=== PATIENT | male | born 1940 | race Caucasian/White ===

== ENCOUNTER 2018-08-03 12:05 | Inpatient (IN) | payer MEDICARE ==
[~2018-08-03] VITALS: Ht 172.7 cm; Wt 68.4 kg
[2018-08-03] MEDS ORDERED: ATOR10TA60 PO (12:51)
[2018-08-03] MEDS ORDERED: GABA-585 PO (12:51)
[2018-08-03] MEDS ORDERED: CALC-474 PO (12:51)
[2018-08-03] MEDS ORDERED: MULT-681 PO (12:51)
[2018-08-03] MEDS ORDERED: ACET325T9 PO (12:51)
[2018-08-03] MEDS ORDERED: CARB1TAB2 PO (12:51)
[2018-08-03] MEDS ORDERED: ASPI-612 PO (12:51)
[2018-08-03] MEDS ORDERED: POLY17PO5 PO (12:51)
[2018-08-03] MEDS ORDERED: PRAM0.255 PO ×2 (12:51)
[2018-08-03] MEDS ORDERED: QUET50TA5 PO (12:51)
[2018-08-03 12:57] LABS: BASO # 0.1 x10^3/uL (0.0-0.2); BASO % 1 % (0-3); EOS # 0.1 x10^3/uL (0.0-0.7); EOS % 1 % (0-3); HEMATOCRIT 44.8 % (39.0-53.0); LYMPH # 0.8 x10^3/uL (1.0-4.8); LYMPH % 10 % (24-48); MEAN CORPUSCULAR HEMOGLOBIN 32 pg (25-35); MEAN CORPUSCULAR HGB CONC 34 g/dL (31-37); MEAN CORPUSCULAR VOLUME 95 fL (79-100); MONO # 0.8 x10^3/uL (0.0-1.1); MONO % 9 % (0-9); NEUT # 6.6 x10^3uL (1.8-7.7); NEUT % 80 % (31-73); PLATELET COUNT 179 x10^3/uL (140-400); RED BLOOD COUNT 4.74 x10^6/uL (4.30-5.70); RED CELL DISTRIBUTION WIDTH 13.9 % (11.5-14.5); WHITE BLOOD COUNT 8.2 x10^3/uL (4.0-11.0)
[2018-08-03 13:11] LABS: ALBUMIN 3.6 g/dL (3.4-5.0); ALBUMIN/GLOBULIN RATIO 1.2 (1.0-1.7); CALCIUM 8.7 mg/dL (8.5-10.1); CREATININE 1.1 mg/dL (0.7-1.3); GFR 64.7; MAGNESIUM 2.2 mg/dL (1.8-2.4); TOTAL BILIRUBIN 0.6 mg/dL (0.2-1.0); TOTAL PROTEIN 6.5 g/dL (6.4-8.2)
--- NOTE | 2018-08-03 13:24 | PHYS DOC ---
Past History Past Medical History: Hypertension, Other Past Surgical History: No Surgical History Alcohol Use: None Drug Use: None Adult General Chief Complaint Chief Complaint: PSYCH EVALUATION HPI HPI Patient is a 78 year [facility] who brought in by his for medical clearance for psychiatric admission. Patient states he had hallucination and had agitation last night. Patient denies suicidal and homicidal ideation. Patient already was accepted to senior behavioral unit and needs medical clearance. Patient denies symptom at this time. Review of Systems Review of Systems Constitutional: Denies fever or chills [] Eyes: Denies change in visual acuity, redness, or eye pain [] HENT: Denies nasal congestion or sore throat [] Respiratory: Denies cough or shortness of breath [] Cardiovascular: No additional information not addressed in HPI [] GI: Denies abdominal pain, nausea, vomiting, bloody stools or diarrhea [] : Denies dysuria or hematuria [] Musculoskeletal: Denies back pain or joint pain [] Integument: Denies rash or skin lesions [] Neurologic: Denies headache, focal weakness or sensory changes [] Endocrine: Denies polyuria or polydipsia [] All other systems were reviewed and found to be within normal limits, except as documented in this note. Allergies Allergies Allergies Coded Allergies Type Severity Reaction Last Updated Verified Penicillins Allergy Intermediate 08/03/18 Yes amoxicillin Allergy Intermediate 08/03/18 Yes clonazepam Allergy Intermediate 08/03/18 Yes Physical Exam Physical Exam Constitutional: Well nourished, no acute distress, non-toxic appearance. [] HENT: Normocephalic, atraumatic Eyes: PERRLA, EOMI, conjunctiva normal, no discharge. [] Neck: Normal range of motion, no tenderness, supple, no stridor. [] Cardiovascular:Heart rate regular rhythm, no murmur [] Lungs & Thorax: Bilateral breath sounds clear to auscultation [] Abdomen: Bowel sounds normal, soft, no tenderness, no masses, no pulsatile masses. [] Skin: Warm, dry, no erythema, no rash. [] Back: No tenderness, no CVA tenderness. [] Extremities: No tenderness, no cyanosis, no clubbing, ROM intact, no edema. [] Neurologic: Alert and oriented X 3, normal motor function, normal sensory function, no focal deficits noted. [] Psychologic: Affect normal, mood normal. [] Current Patient Data Vital Signs Vital Signs Date Time Temp Pulse Resp B/P (MAP) Pulse Ox O2 Delivery O2 Flow Rate FiO2 08/03/18 12:28 97.8 75 18 97 Room Air Lab Results Laboratory Tests Test 08/03/18 12:43 White Blood Count 8.2 x10^3/uL (4.0-11.0) Red Blood Count 4.74 x10^6/uL (4.30-5.70) Hemoglobin 15.0 g/dL (13.0-17.5) Hematocrit 44.8 % (39.0-53.0) Mean Corpuscular Volume 95 fL (79-100) Mean Corpuscular Hemoglobin 32 pg (25-35) Mean Corpuscular Hemoglobin Concent 34 g/dL (31-37) Red Cell Distribution Width 13.9 % (11.5-14.5) Platelet Count 179 x10^3/uL (140-400) Neutrophils (%) (Auto) 80 % (31-73) H Lymphocytes (%) (Auto) 10 % (24-48) L Monocytes (%) (Auto) 9 % (0-9) Eosinophils (%) (Auto) 1 % (0-3) Basophils (%) (Auto) 1 % (0-3) Neutrophils # (Auto) 6.6 x10^3uL (1.8-7.7) Lymphocytes # (Auto) 0.8 x10^3/uL (1.0-4.8) L Monocytes # (Auto) 0.8 x10^3/uL (0.0-1.1) Eosinophils # (Auto) 0.1 x10^3/uL (0.0-0.7) Basophils # (Auto) 0.1 x10^3/uL (0.0-0.2) Sodium Level 143 mmol/L (136-145) Potassium Level 4.0 mmol/L (3.5-5.1) Chloride Level 108 mmol/L (98-107) H Carbon Dioxide Level 28 mmol/L (21-32) Anion Gap 7 (6-14) Blood Urea Nitrogen 22 mg/dL (8-26) Creatinine 1.1 mg/dL (0.7-1.3) Estimated GFR (Cockcroft-Gault) 64.7 BUN/Creatinine Ratio 20 (6-20) Glucose Level 121 mg/dL (70-99) H Calcium Level 8.7 mg/dL (8.5-10.1) Magnesium Level 2.2 mg/dL (1.8-2.4) Total Bilirubin 0.6 mg/dL (0.2-1.0) Aspartate Amino Transferase (AST) 19 U/L (15-37) Alanine Aminotransferase (ALT) 13 U/L (16-63) L Alkaline Phosphatase 80 U/L (46-116) Total Protein 6.5 g/dL (6.4-8.2) Albumin 3.6 g/dL (3.4-5.0) Albumin/Globulin Ratio 1.2 (1.0-1.7) EKG EKG EKG interpreted by me. EKG at 1220 showed normal sinus rhythm at rate of 67, no acute ST and T-wave abnormalities] Radiology/Procedures Radiology/Procedures [] Course & Med Decision Making Course & Med Decision Making Pertinent Labs reviewed. (See chart for details) Evaluation of patient in ER showed 78-year-old male patient brought in to ER for medical clearance for psychiatric admission. Patient had unremarkable physical exam and labs and denied suicidal and homicidal ideation. Patient was medically cleared for psychiatric admission. [] Dragon Disclaimer Dragon Disclaimer This electronic medical record was generated, in whole or in part, using a voice recognition dictation system. Departure Departure: Impression: Primary Impression: Medical clearance for psychiatric admission Disposition: 09 ADMITTED INPATIENT ([id number]) Admitting Physician: Other (Dr. Monsivais) Condition: STABLE YOEL LARA MD Aug 03, 2018 13:24
--- NOTE | 2018-08-03 13:24 | EKG ---
[address] [address] Test Date: 2018-08-03 Test Time: 12:20:05 Pat Name: JOHN ACEVEDO Department: Room: Gender: M Music Director: : 1940 Requested By: YOEL LARA Order Number: [id number] Reading MD: Reddy Javier Measurements Intervals [place] Rate: 67 P: -32 DE: 170 QRS: 41 QRSD: 98 T: 47 QT: 388 QTc: 413 Interpretive Statements SINUS RHYTHM Electronically Signed On 08-06-2018 11:06:38 CDT by Reddy Javier
[2018-08-03 13:34] LABS: BILIRUBIN,URINE NEG (NEG); CLARITY,URINE CLEAR; COLOR,URINE YELLOW; GLUCOSE,URINE NEG (NEG); NITRITE,URINE NEG (NEG); RBC,URINE 0 /HPF (0-2); UROBILINOGEN,URINE 0.2 mg/dL (0.2 mg/dL); WBC,URINE RARE /HPF (0-4)
[2018-08-03 13:35] LABS: BACTERIA,URINE 0 /HPF (0-FEW); SQUAMOUS EPITHELIAL CELL,UR OCC /LPF
[2018-08-03] MEDS ORDERED: GABAPENTIN 100 MG CAPSULE. PO ONE (15:30)
[2018-08-03] MEDS ORDERED: QUEtiapine 50 MG TABLET. PO SCH (15:30)
[2018-08-03] MEDS ORDERED: ACETAMINOPHEN 325 MG TABLET PO PRN (16:30)
[2018-08-03 16:41] VITALS: BP 135/72
[2018-08-03] MEDS: CALCIUM CARB/VIT D3 500/200 TABLET PO SCH (17:00)
[2018-08-03] MEDS ORDERED: CARBIDOPA/LEVODOPA 25/100MG TABLET PO SCH (18:00)
[2018-08-03] MEDS ORDERED: MAGNESIUM HYDROXIDE 2,400 MG/30 ML ORAL.SUSP. PO PRN (18:30)
[2018-08-03] MEDS ORDERED: METHYL SALICYLATE/MENTHOL TOPICAL OINTMENT 29GM TUBE. TP PRN (18:30)
[2018-08-03] MEDS ORDERED: MAG HYDROX/AL HYDROX/SIMETH 30 ML ORAL.SUSP PO PRN (18:30)
[2018-08-03] MEDS: CARBIDOPA/LEVODOPA 25/100MG TABLET PO SCH (19:39)
[2018-08-03] MEDS: QUEtiapine 50 MG TABLET. PO SCH (19:39)
[2018-08-03] MEDS: ASPIRIN ENTERIC COATED 81 MG TABLET.DR. PO SCH (19:39)
[2018-08-03] MEDS: GABAPENTIN 100 MG CAPSULE. PO SCH ×2 (19:39→20:19)
[2018-08-03] MEDS: ATORVASTATIN CALCIUM 10 MG TABLET. PO SCH (19:39)
--- NOTE | 2018-08-03 20:46 | PDOC ---
Exam Note: Alfonso Note: Please also refer to the separate dictated note~for this date of service dictated separately.~Patient seen individually. Discussed the patient with Nursing staff reviewed the chart.~Reviewed interim history and current functioning. Reviewed vital signs,~Labs/ Radiology~and current medications noted below. Continue current treatment with the changes noted in the dictated addendum note Assessment: Vital Signs: Vital Signs Date Time Temp Pulse Resp B/P (MAP) Pulse Ox O2 Delivery O2 Flow Rate FiO2 08/03/18 16:41 98.9 68 18 135/72 (93) 97 Room Air Labs: Laboratory Tests Test 08/03/18 12:43 08/03/18 13:15 White Blood Count 8.2 x10^3/uL (4.0-11.0) Red Blood Count 4.74 x10^6/uL (4.30-5.70) Hemoglobin 15.0 g/dL (13.0-17.5) Hematocrit 44.8 % (39.0-53.0) Mean Corpuscular Volume 95 fL (79-100) Mean Corpuscular Hemoglobin 32 pg (25-35) Mean Corpuscular Hemoglobin Concent 34 g/dL (31-37) Red Cell Distribution Width 13.9 % (11.5-14.5) Platelet Count 179 x10^3/uL (140-400) Neutrophils (%) (Auto) 80 % (31-73) H Lymphocytes (%) (Auto) 10 % (24-48) L Monocytes (%) (Auto) 9 % (0-9) Eosinophils (%) (Auto) 1 % (0-3) Basophils (%) (Auto) 1 % (0-3) Neutrophils # (Auto) 6.6 x10^3uL (1.8-7.7) Lymphocytes # (Auto) 0.8 x10^3/uL (1.0-4.8) L Monocytes # (Auto) 0.8 x10^3/uL (0.0-1.1) Eosinophils # (Auto) 0.1 x10^3/uL (0.0-0.7) Basophils # (Auto) 0.1 x10^3/uL (0.0-0.2) Sodium Level 143 mmol/L (136-145) Potassium Level 4.0 mmol/L (3.5-5.1) Chloride Level 108 mmol/L (98-107) H Carbon Dioxide Level 28 mmol/L (21-32) Anion Gap 7 (6-14) Blood Urea Nitrogen 22 mg/dL (8-26) Creatinine 1.1 mg/dL (0.7-1.3) Estimated GFR (Cockcroft-Gault) 64.7 BUN/Creatinine Ratio 20 (6-20) Glucose Level 121 mg/dL (70-99) H Calcium Level 8.7 mg/dL (8.5-10.1) Magnesium Level 2.2 mg/dL (1.8-2.4) Total Bilirubin 0.6 mg/dL (0.2-1.0) Aspartate Amino Transferase (AST) 19 U/L (15-37) Alanine Aminotransferase (ALT) 13 U/L (16-63) L Alkaline Phosphatase 80 U/L (46-116) Total Protein 6.5 g/dL (6.4-8.2) Albumin 3.6 g/dL (3.4-5.0) Albumin/Globulin Ratio 1.2 (1.0-1.7) Urine Collection Type Unknown Urine Color Yellow Urine Clarity Clear Urine pH 6.0 Urine Specific [place] 1.020 Urine Protein Neg (NEG-TRACE) Urine Glucose (UA) Neg mg/dL (NEG) Urine Ketones (Stick) Trace mg/dL (NEG) Urine Blood Neg (NEG) Urine Nitrite Neg (NEG) Urine Bilirubin Neg (NEG) Urine Urobilinogen Dipstick 0.2 mg/dL (0.2 mg/dL) Urine Leukocyte Esterase Neg (NEG) Urine RBC 0 /HPF (0-2) Urine WBC Rare /HPF (0-4) Urine Squamous Epithelial Cells Occ /LPF Urine Bacteria 0 /HPF (0-FEW) Urine Mucus Mod /LPF Current Medications: Meds: Current Medications Carbidopa/Levodopa (Sinemet 25/100) 2 tab [id number] PO ; Start 08/03/18 at 18:00 ; Stop 08/03/18 at 18:00; Status DC Gabapentin (Neurontin) 100 mg 1X ONCE PO Last administered on 08/03/18at 15:42 ; Start 08/03/18 at 15:30; Stop 08/03/18 at 15:53; Status DC Quetiapine Fumarate (SEROquel) 50 mg PRN TID PO ; Start 08/03/18 at 15:30; Stop 08/03/18 at 16:49; Status DC Acetaminophen (Tylenol) 650 mg PRN Q4HRS PRN PO PAIN / TEMP; Start 08/03/18 at 16:30 Gabapentin (Neurontin) 100 mg TID PO ; Start 08/03/18 at 21:00; Stop 08/03/18 at 21:00; Status DC Aspirin (Aspirin Enteric Coated) 81 mg HS PO Last administered on 08/03/18at 19: 39; Start 08/03/18 at 21:00 Atorvastatin Calcium (Lipitor) 5 mg QHS PO Last administered on 08/03/18at 19:39 ; Start 08/03/18 at 21:00 Calcium/Vitamin D (Oscal D 500mg/ 200uts) 1 tab BIDWMEALS PO Last administered on 08/03/18at 17:00; Start 08/03/18 at 17:00 Multivitamins/ Calcium (Thera-M Plus) 1 tab DAILY PO ; Start 08/04/18 at 09:00 Polyethylene Glycol (miraLAX) 17 gm DAILY PO ; Start 08/04/18 at 09:00 Pramipexole Dihydrochloride (miraPEX) 0.125 mg [id number] PO ; Start 08/04/18 at 09: 00; Stop 08/07/18 at 23:00 Pramipexole Dihydrochloride (miraPEX) 0.25 mg QHS PO Last administered on at 19:40; Start 08/03/18 at 21:00; Stop 08/03/18 at 21:01 Quetiapine Fumarate (SEROquel) 50 mg QHS PO Last administered on 08/03/18at 19: 39; Start 08/03/18 at 21:00 Carbidopa/Levodopa (Sinemet 25/100) 2 tab TID PO Last administered on at 19:39; Start 08/03/18 at 21:00 Multi-Ingredient Ointment (Analgesic [place]) 1 kristina PRN QID PRN TP MUSCLE PAIN; Start 08/03/18 at 18:30 Al Hydroxide/Mg Hydroxide (Mylanta Plus Xs) 15 ml PRN AFTMEALHC PRN PO DYSPEPSIA; Start 08/03/18 at 18:30 Magnesium Hydroxide (Milk Of Magnesia) 2,400 mg PRN QHS PRN PO CONSTIPATION; Start 08/03/18 at 18:30 Active Scripts Active Reported Seroquel (Quetiapine Fumarate) 50 Mg Tablet 50 Mg PO HS Multi-Day Plus Minerals Tablet (Multivitamin-Min/Iron/FA/Vit K) 1 Each Tablet 1 Each PO DAILY Mirapex (Pramipexole Di-Hcl) 0.25 Mg Tablet 0.25 Mg PO HS 1 Days Mirapex (Pramipexole Di-Hcl) 0.25 Mg Tablet 0.125 Mg PO TID 4 Days Miralax (Polyethylene Glycol 3350) 17 Gm Powd.pack 17 Gm PO DAILY Gabapentin 100 Mg Capsule 100 Mg PO TID Sinemet 25-100 Mg Tablet (Carbidopa/Levodopa) 1 Each Tablet 2 Tab PO TID Calcium 500 + Vit D 400 Tablet (Calcium Carbonate/Vitamin D3) 1 Each Tablet 1 Each PO BID Atorvastatin Calcium 10 Mg Tablet 5 Mg PO QHS Aspirin Ec (Aspirin) 81 Mg Tablet.dr 81 Mg PO HS Tylenol (Acetaminophen) 325 Mg Tablet 650 Mg PO PRN Q4HRS PRN I have reviewed the current psychotropics carefully including drug interactions. Risk benefit ratio favors no change other than as noted in my dictated progress note. Diagnosis: Problems: (1) Medical clearance for psychiatric admission (2) Anxiety disorder (3) Impulse control disorder (4) Major depressive disorder, recurrent episode (5) Mild cognitive impairment (6) Parkinson's disease ASIM WISE MD Aug 03, 2018 20:46
[2018-08-03] MEDS ORDERED: PRAMIPEXOLE 0.25 MG TABLET. PO SCH (21:00)
--- NOTE | 2018-08-03 23:36 | HP ---
ADMIT DATE: 08/03/2018 PSYCHIATRIC ADMISSION HISTORY/EVALUATION This note covers elements not covered in my initial note 08/03/2018: The patient was seen individually evening of 08/03/2018 for this evaluation and I previously discussed with nursing staff on 3 or 4 occasions prior to and since the patient's hospitalization. IDENTIFYING DATA: The patient is a 78-year-old male referred to us from [facility] by Dr. Soto, his primary care physician, admitted by Elizabeth Lynch, his , who is his power of employment attorney on account of having vivid hallucinations, delusions, paranoia, being resistive to cares, worsening anxiety. Reportedly, the patient threw his urinal at the staff. He does have a history of Parkinson's with short-term memory deficits, worsening in the evening, questionable early dementia secondary to Parkinson's/Lewy body with behavioral disturbance. He has failed outpatient psychiatric interventions resulting in this referral. CHIEF COMPLAINT: "I came here a short while back today. I live at [facility]. I have some hallucinations, but they are mainly in the evening." HISTORY OF PRESENT ILLNESS: The patient has a history of Parkinson's disease, some short term memory deficits, worsening symptoms of depression, delusion, hallucinations, paranoia, worsening in the evening with increased confusion. He has had some sleep and appetite changes. Hallucinations have been visual and auditory. He has been suspicious of people paranoid, resistive to medications and cares at times, anxious. He has failed outpatient psychiatric interventions. PAST PSYCHIATRIC HISTORY: As above. MEDICAL HISTORY: Parkinson's disease, hypertension, history of falls, hyperlipidemia, low back pain, neuropathy. ACCU-CHEKS: None. DIET: Regular. AMBULATES: With walker. CODE STATUS: DNR. ALLERGIES: AMOXIL, PENICILLIN, KLONOPIN. CURRENT PSYCHOTROPICS: Seroquel 50 mg at bedtime. FAMILY HISTORY: Noncontributory. SOCIAL HISTORY: No history of alcohol, drug abuse, physical, sexual or elder abuse history is noted. Not known to be a perpetrator. He has 1 son who he says is a plant protection superintendent for [employer] in [place]. 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 REACTION TO HOSPITALIZATION: The patient accepting of it. ASSETS: Supportive family, cognitively reasonably intact other than confusion in the evening. MENTAL STATUS EXAMINATION: The patient was seen individually evening of 08/03/2018. He is oriented to himself, date, and situation. He knew it was 07/2018. When asked about if he knew the name of the president, he responded "Na[place]." He was unable to remember the name, but was able to describe the hair of the president. Speech coherent. Thought processes goal directed. Intellect average. Insight good. Judgment intact. He is somewhat paranoid. Mood is depressed, anxious. Affect, mood congruent. Attention span short. Language function intact. 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 Rest unchanged from above. PLAN: Admit to geropsychiatry unit at [facility]. I will see the patient daily individually from a psychiatric standpoint, medical followup with Dr. Germain/Dr. Lee. Continue the patient on his current psychotropics, observe baseline, consider adding an SSRI agent, perhaps Exelon patch and Namenda, given questionable Lewy body dementia. Make further adjustments as clinically indicated. ESTIMATED LENGTH OF STAY: 10-12 days. DISPOSITION PLAN: Back to [facility]. MAN Taras WISE MD DR: LISA/ferny JOB#: [id number] / [id number]
[2018-08-04 03:07] LABS: HEMOGLOBIN A1C 5.1 % (4.8-5.6)
[2018-08-04 05:08] LABS: THYROXINE 7.5 ug/dL (4.5-12.0)
[2018-08-04 06:01] VITALS: BP 137/76
[2018-08-04] MEDS: CALCIUM CARB/VIT D3 500/200 TABLET PO SCH ×2 (07:57→17:49)
[2018-08-04] MEDS: POLYETHYLENE GLYCOL 3350 17 GM PACKET. PO SCH (07:57)
[2018-08-04] MEDS: MULTIVITAMIN with MINERAL TABLET. PO SCH (07:58)
[2018-08-04] MEDS: CARBIDOPA/LEVODOPA 25/100MG TABLET PO SCH ×3 (07:58→20:30)
[2018-08-04] MEDS: PRAMIPEXOLE 0.25 MG TABLET. PO SCH ×3 (07:58→20:30)
--- NOTE | 2018-08-04 11:16 | PDOC2 ---
CONSULT Date of Admission DATE: 08/04/18 TIME: 11:16 Problem List Problems Medical Problems: (1) Medical clearance for psychiatric admission Status: Acute Current Medications Current Medications Carbidopa/Levodopa (Sinemet 25/100) 2 tab [id number] PO ; Start 08/03/18 at 18:00 ; Stop 08/03/18 at 18:00; Status DC Gabapentin (Neurontin) 100 mg 1X ONCE PO Last administered on 08/03/18at 15:42 ; Start 08/03/18 at 15:30; Stop 08/03/18 at 15:53; Status DC Quetiapine Fumarate (SEROquel) 50 mg PRN TID PO ; Start 08/03/18 at 15:30; Stop 08/03/18 at 16:49; Status DC Acetaminophen (Tylenol) 650 mg PRN Q4HRS PRN PO PAIN / TEMP; Start 08/03/18 at 16:30 Gabapentin (Neurontin) 100 mg TID PO ; Start 08/03/18 at 21:00; Stop 08/03/18 at 21:00; Status DC Aspirin (Aspirin Enteric Coated) 81 mg HS PO Last administered on 08/03/18at 19: 39; Start 08/03/18 at 21:00 Atorvastatin Calcium (Lipitor) 5 mg QHS PO Last administered on 08/03/18at 19:39 ; Start 08/03/18 at 21:00 Calcium/Vitamin D (Oscal D 500mg/ 200uts) 1 tab BIDWMEALS PO Last administered on 08/04/18at 07:57; Start 08/03/18 at 17:00 Multivitamins/ Calcium (Thera-M Plus) 1 tab DAILY PO Last administered on at 07:58; Start 08/04/18 at 09:00 Polyethylene Glycol (miraLAX) 17 gm DAILY PO Last administered on 08/04/18at 07: 57; Start 08/04/18 at 09:00 Pramipexole Dihydrochloride (miraPEX) 0.125 mg [id number] PO Last administered on at 07:58; Start 08/04/18 at 09:00; Stop 08/07/18 at 23:00 Pramipexole Dihydrochloride (miraPEX) 0.25 mg QHS PO Last administered on at 19:40; Start 08/03/18 at 21:00; Stop 08/03/18 at 21:01; Status DC Quetiapine Fumarate (SEROquel) 50 mg QHS PO Last administered on 08/03/18at 19: 39; Start 08/03/18 at 21:00 Carbidopa/Levodopa (Sinemet 25/100) 2 tab TID PO Last administered on at 07:58; Start 08/03/18 at 21:00 Multi-Ingredient Ointment (Analgesic [place]) 1 kristina PRN QID PRN TP MUSCLE PAIN; Start 08/03/18 at 18:30 Al Hydroxide/Mg Hydroxide (Mylanta Plus Xs) 15 ml PRN AFTMEALHC PRN PO DYSPEPSIA; Start 08/03/18 at 18:30 Magnesium Hydroxide (Milk Of Magnesia) 2,400 mg PRN QHS PRN PO CONSTIPATION; Start 08/03/18 at 18:30 Active Scripts Active Reported Seroquel (Quetiapine Fumarate) 50 Mg Tablet 50 Mg PO HS Multi-Day Plus Minerals Tablet (Multivitamin-Min/Iron/FA/Vit K) 1 Each Tablet 1 Each PO DAILY Mirapex (Pramipexole Di-Hcl) 0.25 Mg Tablet 0.25 Mg PO HS 1 Days Mirapex (Pramipexole Di-Hcl) 0.25 Mg Tablet 0.125 Mg PO TID 4 Days Miralax (Polyethylene Glycol 3350) 17 Gm Powd.pack 17 Gm PO DAILY Gabapentin 100 Mg Capsule 100 Mg PO TID Sinemet 25-100 Mg Tablet (Carbidopa/Levodopa) 1 Each Tablet 2 Tab PO TID Calcium 500 + Vit D 400 Tablet (Calcium Carbonate/Vitamin D3) 1 Each Tablet 1 Each PO BID Atorvastatin Calcium 10 Mg Tablet 5 Mg PO QHS Aspirin Ec (Aspirin) 81 Mg Tablet.dr 81 Mg PO HS Tylenol (Acetaminophen) 325 Mg Tablet 650 Mg PO PRN Q4HRS PRN Allergies: Coded Allergies: Penicillins (Verified Allergy, Intermediate, 08/03/18) amoxicillin (Verified Allergy, Intermediate, 08/03/18) clonazepam (Verified Allergy, Intermediate, 08/03/18) VITALS Vital Signs Date Time Temp Pulse Resp B/P (MAP) Pulse Ox O2 Delivery O2 Flow Rate FiO2 08/04/18 06:01 97.9 66 16 137/76 (96) 95 08/03/18 16:41 Room Air Labs Laboratory Tests Test 08/03/18 12:43 08/03/18 13:15 White Blood Count 8.2 x10^3/uL (4.0-11.0) Red Blood Count 4.74 x10^6/uL (4.30-5.70) Hemoglobin 15.0 g/dL (13.0-17.5) Hematocrit 44.8 % (39.0-53.0) Mean Corpuscular Volume 95 fL (79-100) Mean Corpuscular Hemoglobin 32 pg (25-35) Mean Corpuscular Hemoglobin Concent 34 g/dL (31-37) Red Cell Distribution Width 13.9 % (11.5-14.5) Platelet Count 179 x10^3/uL (140-400) Neutrophils (%) (Auto) 80 % (31-73) Lymphocytes (%) (Auto) 10 % (24-48) Monocytes (%) (Auto) 9 % (0-9) Eosinophils (%) (Auto) 1 % (0-3) Basophils (%) (Auto) 1 % (0-3) Neutrophils # (Auto) 6.6 x10^3uL (1.8-7.7) Lymphocytes # (Auto) 0.8 x10^3/uL (1.0-4.8) Monocytes # (Auto) 0.8 x10^3/uL (0.0-1.1) Eosinophils # (Auto) 0.1 x10^3/uL (0.0-0.7) Basophils # (Auto) 0.1 x10^3/uL (0.0-0.2) Sodium Level 143 mmol/L (136-145) Potassium Level 4.0 mmol/L (3.5-5.1) Chloride Level 108 mmol/L (98-107) Carbon Dioxide Level 28 mmol/L (21-32) Anion Gap 7 (6-14) Blood Urea Nitrogen 22 mg/dL (8-26) Creatinine 1.1 mg/dL (0.7-1.3) Estimated GFR (Cockcroft-Gault) 64.7 BUN/Creatinine Ratio 20 (6-20) Glucose Level 121 mg/dL (70-99) Hemoglobin A1c 5.1 % (4.8-5.6) Calcium Level 8.7 mg/dL (8.5-10.1) Magnesium Level 2.2 mg/dL (1.8-2.4) Total Bilirubin 0.6 mg/dL (0.2-1.0) Aspartate Amino Transf (AST/SGOT) 19 U/L (15-37) Alanine Aminotransferase (ALT/SGPT) 13 U/L (16-63) Alkaline Phosphatase 80 U/L (46-116) Total Protein 6.5 g/dL (6.4-8.2) Albumin 3.6 g/dL (3.4-5.0) Albumin/Globulin Ratio 1.2 (1.0-1.7) Thyroxine (T4) 7.5 ug/dL (4.5-12.0) Total Triiodothyronine 120 ng/dL (71-180) Urine Collection Type Unknown Urine Color Yellow Urine Clarity Clear Urine pH 6.0 Urine Specific [place] 1.020 Urine Protein Neg (NEG-TRACE) Urine Glucose (UA) Neg mg/dL (NEG) Urine Ketones (Stick) Trace mg/dL (NEG) Urine Blood Neg (NEG) Urine Nitrite Neg (NEG) Urine Bilirubin Neg (NEG) Urine Urobilinogen Dipstick 0.2 mg/dL (0.2 mg/dL) Urine Leukocyte Esterase Neg (NEG) Urine RBC 0 /HPF (0-2) Urine WBC Rare /HPF (0-4) Urine Squamous Epithelial Cells Occ /LPF Urine Bacteria 0 /HPF (0-FEW) Urine Mucus Mod /LPF GADIEL LACEY DO Aug 04, 2018 11:16
[2018-08-04 11:51] LABS: THYROID STIM HORMONE (TSH) 2.239 uIU/mL (0.358-3.740)
[2018-08-04 15:41] VITALS: BP 130/70
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
[2018-08-04] MEDS: ASPIRIN ENTERIC COATED 81 MG TABLET.DR. PO SCH (20:29)
[2018-08-04] MEDS: QUEtiapine 50 MG TABLET. PO SCH (20:30)
[2018-08-04] MEDS: ATORVASTATIN CALCIUM 10 MG TABLET. PO SCH (20:30)
--- NOTE | 2018-08-04 22:47 | PDOC ---
Exam Note: Alfonso Note: Please also refer to the separate dictated note~for this date of service dictated separately.~Patient seen individually. Discussed the patient with Nursing staff reviewed the chart.~Reviewed interim history and current functioning. Reviewed vital signs,~Labs/ Radiology~and current medications noted below. Continue current treatment with the changes noted in the dictated addendum note Assessment: Vital Signs: Vital Signs Date Time Temp Pulse Resp B/P (MAP) Pulse Ox O2 Delivery O2 Flow Rate FiO2 08/04/18 15:41 97.3 76 20 130/70 (90) 96 08/03/18 16:41 Room Air I&O Intake and Output 08/04/18 07:00 Intake Total 240 ml Balance 240 ml Intake Oral 240 ml # Voids 1 Current Medications: Meds: Current Medications Carbidopa/Levodopa (Sinemet 25/100) 2 tab [id number] PO ; Start 08/03/18 at 18:00 ; Stop 08/03/18 at 18:00; Status DC Gabapentin (Neurontin) 100 mg 1X ONCE PO Last administered on 08/03/18at 15:42 ; Start 08/03/18 at 15:30; Stop 08/03/18 at 15:53; Status DC Quetiapine Fumarate (SEROquel) 50 mg PRN TID PO ; Start 08/03/18 at 15:30; Stop 08/03/18 at 16:49; Status DC Acetaminophen (Tylenol) 650 mg PRN Q4HRS PRN PO PAIN / TEMP; Start 08/03/18 at 16:30 Gabapentin (Neurontin) 100 mg TID PO ; Start 08/03/18 at 21:00; Stop 08/03/18 at 21:00; Status DC Aspirin (Aspirin Enteric Coated) 81 mg HS PO Last administered on 08/04/18at 20: 29; Start 08/03/18 at 21:00 Atorvastatin Calcium (Lipitor) 5 mg QHS PO Last administered on 08/04/18at 20:30 ; Start 08/03/18 at 21:00 Calcium/Vitamin D (Oscal D 500mg/ 200uts) 1 tab BIDWMEALS PO Last administered on 08/04/18at 17:49; Start 08/03/18 at 17:00 Multivitamins/ Calcium (Thera-M Plus) 1 tab DAILY PO Last administered on 07:58; Start 08/04/18 at 09:00 Polyethylene Glycol (miraLAX) 17 gm DAILY PO Last administered on 08/04/18 07: 57; Start 08/04/18 at 09:00 Pramipexole Dihydrochloride (miraPEX) 0.125 mg [id number] PO Last administered on 20:30; Start 08/04/18 at 09:00; Stop 08/07/18 at 23:00 Pramipexole Dihydrochloride (miraPEX) 0.25 mg QHS PO Last administered on at 19:40; Start 08/03/18 at 21:00; Stop 08/03/18 at 21:01; Status DC Quetiapine Fumarate (SEROquel) 50 mg QHS PO Last administered on 08/04/18at 20: 30; Start 08/03/18 at 21:00 Carbidopa/Levodopa (Sinemet 25/100) 2 tab TID PO Last administered on at 20:30; Start 08/03/18 at 21:00 Multi-Ingredient Ointment (Analgesic [place]) 1 kristina PRN QID PRN TP MUSCLE PAIN; Start 08/03/18 at 18:30 Al Hydroxide/Mg Hydroxide (Mylanta Plus Xs) 15 ml PRN AFTMEALHC PRN PO DYSPEPSIA; Start 08/03/18 at 18:30 Magnesium Hydroxide (Milk Of Magnesia) 2,400 mg PRN QHS PRN PO CONSTIPATION; Start 08/03/18 at 18:30 Active Scripts Active Reported Seroquel (Quetiapine Fumarate) 50 Mg Tablet 50 Mg PO HS Multi-Day Plus Minerals Tablet (Multivitamin-Min/Iron/FA/Vit K) 1 Each Tablet 1 Each PO DAILY Mirapex (Pramipexole Di-Hcl) 0.25 Mg Tablet 0.25 Mg PO HS 1 Days Mirapex (Pramipexole Di-Hcl) 0.25 Mg Tablet 0.125 Mg PO TID 4 Days Miralax (Polyethylene Glycol 3350) 17 Gm Powd.pack 17 Gm PO DAILY Gabapentin 100 Mg Capsule 100 Mg PO TID Sinemet 25-100 Mg Tablet (Carbidopa/Levodopa) 1 Each Tablet 2 Tab PO TID Calcium 500 + Vit D 400 Tablet (Calcium Carbonate/Vitamin D3) 1 Each Tablet 1 Each PO BID Atorvastatin Calcium 10 Mg Tablet 5 Mg PO QHS Aspirin Ec (Aspirin) 81 Mg Tablet. 81 Mg PO HS Tylenol (Acetaminophen) 325 Mg Tablet 650 Mg PO PRN Q4HRS PRN I have reviewed the current psychotropics carefully including drug interactions. Risk benefit ratio favors no change other than as noted in my dictated progress note. Diagnosis: Problems: (1) Medical clearance for psychiatric admission (2) Anxiety disorder (3) Impulse control disorder (4) Major depressive disorder, recurrent episode (5) Mild cognitive impairment (6) Parkinson's disease ASIM WISE MD Aug 04, 2018 22:47
[2018-08-05 05:46] VITALS: BP 121/83
[2018-08-05] MEDS: POLYETHYLENE GLYCOL 3350 17 GM PACKET. PO SCH (07:19)
[2018-08-05] MEDS: PRAMIPEXOLE 0.25 MG TABLET. PO SCH ×3 (07:19→21:37)
[2018-08-05] MEDS: CALCIUM CARB/VIT D3 500/200 TABLET PO SCH ×2 (07:19→18:16)
[2018-08-05] MEDS: MULTIVITAMIN with MINERAL TABLET. PO SCH (07:19)
[2018-08-05] MEDS: CARBIDOPA/LEVODOPA 25/100MG TABLET PO SCH ×3 (07:19→21:38)
[2018-08-05] MEDS: RIVASTIGMINE 4.6MG PATCH. TD SCH (13:26)
[2018-08-05] MEDS: MEMANTINE 5 MG TABLET. PO SCH (13:26)
[2018-08-05 16:35] VITALS: BP 151/90
[2018-08-05 16:54] LABS: BASO % 1 % (0-3); EOS # 0.2 x10^3/uL (0.0-0.7); EOS % 3 % (0-3); HEMATOCRIT 45.8 % (39.0-53.0); HEMOGLOBIN 15.5 g/dL (13.0-17.5); LYMPH # 0.9 x10^3/uL (1.0-4.8); LYMPH % 17 % (24-48); MEAN CORPUSCULAR HEMOGLOBIN 32 pg (25-35); MEAN CORPUSCULAR HGB CONC 34 g/dL (31-37); MEAN CORPUSCULAR VOLUME 96 fL (79-100); MONO # 0.7 x10^3/uL (0.0-1.1); MONO % 13 % (0-9); NEUT # 3.6 x10^3uL (1.8-7.7); NEUT % 66 % (31-73); PLATELET COUNT 180 x10^3/uL (140-400); RED BLOOD COUNT 4.79 x10^6/uL (4.30-5.70); RED CELL DISTRIBUTION WIDTH 14.1 % (11.5-14.5); WHITE BLOOD COUNT 5.6 x10^3/uL (4.0-11.0)
[2018-08-05 17:01] LABS: ALBUMIN 3.5 g/dL (3.4-5.0); ALBUMIN/GLOBULIN RATIO 1.2 (1.0-1.7); CALCIUM 8.4 mg/dL (8.5-10.1); CREATININE 0.9 mg/dL (0.7-1.3); GFR 81.6; TOTAL BILIRUBIN 0.4 mg/dL (0.2-1.0); TOTAL PROTEIN 6.4 g/dL (6.4-8.2)
--- NOTE | 2018-08-05 20:57 | PDOC ---
Exam Note: Alfonso Note: Please also refer to the separate dictated note~for this date of service dictated separately.~Patient seen individually. Discussed the patient with Nursing staff reviewed the chart.~Reviewed interim history and current functioning. Reviewed vital signs,~Labs/ Radiology~and current medications noted below. Continue current treatment with the changes noted in the dictated addendum note Assessment: Vital Signs: Vital Signs Date Time Temp Pulse Resp B/P (MAP) Pulse Ox O2 Delivery O2 Flow Rate FiO2 08/05/18 16:35 98.6 83 18 151/90 (110) 94 08/03/18 16:41 Room Air I&O Intake and Output 08/05/18 07:00 Intake Total 1440 ml Balance 1440 ml Intake Oral 1440 ml # Voids 1 Labs: Laboratory Tests Test 08/05/18 16:16 08/05/18 16:30 Glucose (Fingerstick) 107 mg/dL (70-99) H White Blood Count 5.6 x10^3/uL (4.0-11.0) Red Blood Count 4.79 x10^6/uL (4.30-5.70) Hemoglobin 15.5 g/dL (13.0-17.5) Hematocrit 45.8 % (39.0-53.0) Mean Corpuscular Volume 96 fL (79-100) Mean Corpuscular Hemoglobin 32 pg (25-35) Mean Corpuscular Hemoglobin Concent 34 g/dL (31-37) Red Cell Distribution Width 14.1 % (11.5-14.5) Platelet Count 180 x10^3/uL (140-400) Neutrophils (%) (Auto) 66 % (31-73) Lymphocytes (%) (Auto) 17 % (24-48) L Monocytes (%) (Auto) 13 % (0-9) H Eosinophils (%) (Auto) 3 % (0-3) Basophils (%) (Auto) 1 % (0-3) Neutrophils # (Auto) 3.6 x10^3uL (1.8-7.7) Lymphocytes # (Auto) 0.9 x10^3/uL (1.0-4.8) L Monocytes # (Auto) 0.7 x10^3/uL (0.0-1.1) Eosinophils # (Auto) 0.2 x10^3/uL (0.0-0.7) Basophils # (Auto) 0.0 x10^3/uL (0.0-0.2) Sodium Level 142 mmol/L (136-145) Potassium Level 4.0 mmol/L (3.5-5.1) Chloride Level 107 mmol/L (98-107) Carbon Dioxide Level 31 mmol/L (21-32) Anion Gap 4 (6-14) L Blood Urea Nitrogen 22 mg/dL (8-26) Creatinine 0.9 mg/dL (0.7-1.3) Estimated GFR (Cockcroft-Gault) 81.6 BUN/Creatinine Ratio 24 (6-20) H Glucose Level 105 mg/dL (70-99) H Lactic Acid Level 1.6 mmol/L (0.4-2.0) Calcium Level 8.4 mg/dL (8.5-10.1) L Total Bilirubin 0.4 mg/dL (0.2-1.0) Aspartate Amino Transferase (AST) 17 U/L (15-37) Alanine Aminotransferase (ALT) 16 U/L (16-63) Alkaline Phosphatase 95 U/L (46-116) Troponin I Quantitative < 0.017 ng/mL (0-0.055) Total Protein 6.4 g/dL (6.4-8.2) Albumin 3.5 g/dL (3.4-5.0) Albumin/Globulin Ratio 1.2 (1.0-1.7) Current Medications: Meds: Current Medications Carbidopa/Levodopa (Sinemet 25/100) 2 tab [id number] PO ; Start 08/03/18 at 18:00 ; Stop 08/03/18 at 18:00; Status DC Gabapentin (Neurontin) 100 mg 1X ONCE PO Last administered on 08/03/18at 15:42 ; Start 08/03/18 at 15:30; Stop 08/03/18 at 15:53; Status DC Quetiapine Fumarate (SEROquel) 50 mg PRN TID PO ; Start 08/03/18 at 15:30; Stop 08/03/18 at 16:49; Status DC Acetaminophen (Tylenol) 650 mg PRN Q4HRS PRN PO PAIN / TEMP; Start 08/03/18 at 16:30 Gabapentin (Neurontin) 100 mg TID PO ; Start 08/03/18 at 21:00; Stop 08/03/18 at 21:00; Status DC Aspirin (Aspirin Enteric Coated) 81 mg HS PO Last administered on 08/04/18 20: 29; Start 08/03/18 at 21:00 Atorvastatin Calcium (Lipitor) 5 mg QHS PO Last administered on 08/04/18 20:30 ; Start 08/03/18 at 21:00 Calcium/Vitamin D (Oscal D 500mg/ 200uts) 1 tab BIDWMEALS PO Last administered on 08/05/18 18:16; Start 08/03/18 at 17:00 Multivitamins/ Calcium (Thera-M Plus) 1 tab DAILY PO Last administered on 07:19; Start 08/04/18 at 09:00 Polyethylene Glycol (miraLAX) 17 gm DAILY PO Last administered on 08/05/18 07: 19; Start 08/04/18 at 09:00 Pramipexole Dihydrochloride (miraPEX) 0.125 mg [id number] PO Last administered on 13:26; Start 08/04/18 at 09:00; Stop 08/07/18 at 23:00 Pramipexole Dihydrochloride (miraPEX) 0.25 mg QHS PO Last administered on at 19:40; Start 08/03/18 at 21:00; Stop 08/03/18 at 21:01; Status DC Quetiapine Fumarate (SEROquel) 50 mg QHS PO Last administered on 08/04/18at 20: 30; Start 08/03/18 at 21:00 Carbidopa/Levodopa (Sinemet 25/100) 2 tab TID PO Last administered on 13:26; Start 08/03/18 at 21:00 Multi-Ingredient Ointment (Analgesic [place]) 1 kristina PRN QID PRN TP MUSCLE PAIN; Start 08/03/18 at 18:30 Al Hydroxide/Mg Hydroxide (Mylanta Plus Xs) 15 ml PRN AFTMEALHC PRN PO DYSPEPSIA; Start 08/03/18 at 18:30 Magnesium Hydroxide (Milk Of Magnesia) 2,400 mg PRN QHS PRN PO CONSTIPATION; Start 08/03/18 at 18:30 Memantine (Namenda) 5 mg DAILY PO Last administered on 08/05/18at 13:26; Start 08/05/18 at 10:00 Rivastigmine (Exelon) 1 patch DAILY TD Last administered on 08/05/18at 13:26; Start 08/05/18 at 10:00 Mirtazapine (Remeron) 7.5 mg QHS PO ; Start 08/05/18 at 21:00 Olanzapine (ZyPREXA ZYDIS) 1.25 mg PRN Q2HR PRN PO ANXIETY / AGITATION; Start 08/05/18 at 09:30 Active Scripts Active Reported Seroquel (Quetiapine Fumarate) 50 Mg Tablet 50 Mg PO HS Multi-Day Plus Minerals Tablet (Multivitamin-Min/Iron/FA/Vit K) 1 Each Tablet 1 Each PO DAILY Mirapex (Pramipexole Di-Hcl) 0.25 Mg Tablet 0.25 Mg PO HS 1 Days Mirapex (Pramipexole Di-Hcl) 0.25 Mg Tablet 0.125 Mg PO TID 4 Days Miralax (Polyethylene Glycol 3350) 17 Gm Powd.pack 17 Gm PO DAILY Gabapentin 100 Mg Capsule 100 Mg PO TID Sinemet 25-100 Mg Tablet (Carbidopa/Levodopa) 1 Each Tablet 2 Tab PO TID Calcium 500 + Vit D 400 Tablet (Calcium Carbonate/Vitamin D3) 1 Each Tablet 1 Each PO BID Atorvastatin Calcium 10 Mg Tablet 5 Mg PO QHS Aspirin Ec (Aspirin) 81 Mg Tablet. 81 Mg PO HS Tylenol (Acetaminophen) 325 Mg Tablet 650 Mg PO PRN Q4HRS PRN I have reviewed the current psychotropics carefully including drug interactions. Risk benefit ratio favors no change other than as noted in my dictated progress note. Diagnosis: Problems: (1) Medical clearance for psychiatric admission (2) Anxiety disorder (3) Impulse control disorder (4) Major depressive disorder, recurrent episode (5) Mild cognitive impairment (6) Parkinson's disease ASIM WISE MD Aug 05, 2018 20:57
[2018-08-05] MEDS: ATORVASTATIN CALCIUM 10 MG TABLET. PO SCH (21:37)
[2018-08-05] MEDS: QUEtiapine 50 MG TABLET. PO SCH (21:38)
[2018-08-05] MEDS: ASPIRIN ENTERIC COATED 81 MG TABLET.DR. PO SCH (21:38)
[2018-08-05] MEDS: MIRTAZAPINE 7.5 MG TABLET. PO SCH (21:39)
[2018-08-06 06:32] VITALS: BP 101/55
--- NOTE | 2018-08-06 08:50 | RAD ---
EXAM: Chest, single view. HISTORY: Rapid response. Shortness of breath. COMPARISON: None. FINDINGS: A frontal view of the chest is obtained. There is no infiltrate, pleural effusion or pneumothorax. The heart is normal in size. IMPRESSION: No acute pulmonary finding. Electronically signed by: Brooklyn Castaneda MD (08/06/2018 8:46 AM) [place] [id number]
[2018-08-06] MEDS: POLYETHYLENE GLYCOL 3350 17 GM PACKET. PO SCH (09:15)
[2018-08-06] MEDS: CALCIUM CARB/VIT D3 500/200 TABLET PO SCH ×2 (09:15→17:37)
[2018-08-06] MEDS: PRAMIPEXOLE 0.25 MG TABLET. PO SCH ×3 (09:16→21:06)
[2018-08-06] MEDS: MEMANTINE 5 MG TABLET. PO SCH (09:16)
[2018-08-06] MEDS: RIVASTIGMINE 4.6MG PATCH. TD SCH (09:17)
[2018-08-06] MEDS: CARBIDOPA/LEVODOPA 25/100MG TABLET PO SCH ×3 (09:17→21:07)
[2018-08-06] MEDS: MULTIVITAMIN with MINERAL TABLET. PO SCH (09:17)
--- NOTE | 2018-08-06 11:06 | EKG ---
[address] [address] Test Date: 2018-08-05 Test Time: 16:26:49 Pat Name: JOHN ACEVEDO Department: Room: [address] [place] [address] Gender: M [employer]: : [id number] Requested By: GADIEL LACEY Order Number: [id number] Reading MD: Reddy Javier Measurements Intervals [place] Rate: 68 P: 36 SC: 168 QRS: 52 QRSD: 102 T: 54 QT: 394 QTc: 424 Interpretive Statements SINUS RHYTHM Electronically Signed On 08-06-2018 11:28:05 CDT by Reddy Javier
[2018-08-06 15:50] VITALS: BP 125/72
--- NOTE | 2018-08-06 20:51 | PDOC ---
Exam Note: Alfonso Note: Please also refer to the separate dictated note~for this date of service dictated separately.~Patient seen individually. Discussed the patient with Nursing staff reviewed the chart.~Reviewed interim history and current functioning. Reviewed vital signs,~Labs/ Radiology~and current medications noted below. Continue current treatment with the changes noted in the dictated addendum note Assessment: Vital Signs: Vital Signs Date Time Temp Pulse Resp B/P (MAP) Pulse Ox O2 Delivery O2 Flow Rate FiO2 08/06/18 15:50 97.9 61 18 125/72 (89) 95 08/06/18 06:32 Room Air I&O Intake and Output 08/06/18 07:00 Intake Total 845 ml Balance 845 ml Intake Oral 845 ml # Voids 1 # Bowel Movements 1 Current Medications: Meds: Current Medications Carbidopa/Levodopa (Sinemet 25/100) 2 tab [id number] PO ; Start 08/03/18 at 18:00 ; Stop 08/03/18 at 18:00; Status DC Gabapentin (Neurontin) 100 mg 1X ONCE PO Last administered on 08/03/18at 15:42 ; Start 08/03/18 at 15:30; Stop 08/03/18 at 15:53; Status DC Quetiapine Fumarate (SEROquel) 50 mg PRN TID PO ; Start 08/03/18 at 15:30; Stop 08/03/18 at 16:49; Status DC Acetaminophen (Tylenol) 650 mg PRN Q4HRS PRN PO PAIN / TEMP; Start 08/03/18 at 16:30 Gabapentin (Neurontin) 100 mg TID PO ; Start 08/03/18 at 21:00; Stop 08/03/18 at 21:00; Status DC Aspirin (Aspirin Enteric Coated) 81 mg HS PO Last administered on 08/05/18at 21: 38; Start 08/03/18 at 21:00 Atorvastatin Calcium (Lipitor) 5 mg QHS PO Last administered on 08/05/18at 21:37 ; Start 08/03/18 at 21:00 Calcium/Vitamin D (Oscal D 500mg/ 200uts) 1 tab BIDWMEALS PO Last administered on 08/06/18at 17:37; Start 08/03/18 at 17:00 Multivitamins/ Calcium (Thera-M Plus) 1 tab DAILY PO Last administered on at 09:17; Start 08/04/18 at 09:00 Polyethylene Glycol (miraLAX) 17 gm DAILY PO Last administered on 08/06/18at 09: 15; Start 08/04/18 at 09:00 Pramipexole Dihydrochloride (miraPEX) 0.125 mg [id number] PO Last administered on at 14:03; Start 08/04/18 at 09:00; Stop 08/07/18 at 23:00 Pramipexole Dihydrochloride (miraPEX) 0.25 mg QHS PO Last administered on at 19:40; Start 08/03/18 at 21:00; Stop 08/03/18 at 21:01; Status DC Quetiapine Fumarate (SEROquel) 50 mg QHS PO Last administered on 08/05/18at 21: 38; Start 08/03/18 at 21:00 Carbidopa/Levodopa (Sinemet 25/100) 2 tab TID PO Last administered on at 14:03; Start 08/03/18 at 21:00 Multi-Ingredient Ointment (Analgesic [place]) 1 kristina PRN QID PRN TP MUSCLE PAIN; Start 08/03/18 at 18:30 Al Hydroxide/Mg Hydroxide (Mylanta Plus Xs) 15 ml PRN AFTMEALHC PRN PO DYSPEPSIA; Start 08/03/18 at 18:30 Magnesium Hydroxide (Milk Of Magnesia) 2,400 mg PRN QHS PRN PO CONSTIPATION; Start 08/03/18 at 18:30 Memantine (Namenda) 5 mg DAILY PO Last administered on 08/06/18at 09:16; Start 08/05/18 at 10:00 Rivastigmine (Exelon) 1 patch DAILY TD Last administered on 08/06/18at 09:17; Start 08/05/18 at 10:00 Mirtazapine (Remeron) 7.5 mg QHS PO Last administered on 08/05/18at 21:39; Start 08/05/18 at 21:00 Olanzapine (ZyPREXA ZYDIS) 1.25 mg PRN Q2HR PRN PO ANXIETY / AGITATION; Start 08/05/18 at 09:30 Active Scripts Active Reported Seroquel (Quetiapine Fumarate) 50 Mg Tablet 50 Mg PO HS Multi-Day Plus Minerals Tablet (Multivitamin-Min/Iron/FA/Vit K) 1 Each Tablet 1 Each PO DAILY Mirapex (Pramipexole Di-Hcl) 0.25 Mg Tablet 0.25 Mg PO HS 1 Days Mirapex (Pramipexole Di-Hcl) 0.25 Mg Tablet 0.125 Mg PO TID 4 Days Miralax (Polyethylene Glycol 3350) 17 Gm Powd.pack 17 Gm PO DAILY Gabapentin 100 Mg Capsule 100 Mg PO TID Sinemet 25-100 Mg Tablet (Carbidopa/Levodopa) 1 Each Tablet 2 Tab PO TID Calcium 500 + Vit D 400 Tablet (Calcium Carbonate/Vitamin D3) 1 Each Tablet 1 Each PO BID Atorvastatin Calcium 10 Mg Tablet 5 Mg PO QHS Aspirin Ec (Aspirin) 81 Mg Tablet.dr 81 Mg PO HS Tylenol (Acetaminophen) 325 Mg Tablet 650 Mg PO PRN Q4HRS PRN I have reviewed the current psychotropics carefully including drug interactions. Risk benefit ratio favors no change other than as noted in my dictated progress note. Diagnosis: Problems: (1) Medical clearance for psychiatric admission (2) Anxiety disorder (3) Impulse control disorder (4) Major depressive disorder, recurrent episode (5) Mild cognitive impairment (6) Parkinson's disease ASIM WISE MD Aug 06, 2018 20:51
[2018-08-06] MEDS: QUEtiapine 50 MG TABLET. PO SCH (21:06)
[2018-08-06] MEDS: MIRTAZAPINE 7.5 MG TABLET. PO SCH (21:06)
[2018-08-06] MEDS: ASPIRIN ENTERIC COATED 81 MG TABLET.DR. PO SCH (21:07)
[2018-08-06] MEDS: ATORVASTATIN CALCIUM 10 MG TABLET. PO SCH (21:07)
--- NOTE | 2018-08-07 00:27 | PN ---
DATE: 08/04/2018 PSYCHIATRIC PROGRESS NOTE This late entry 08/04/2018 covers elements not covered in my initial note. SUBJECTIVE: Overall, the patient required much encouragement with bedtime medications and he is quite irritable, paranoid, compliant during the day on 08/04/2018, somewhat impulsive, slept poorly. REVIEW OF SYSTEMS: Ambulation impaired, in wheelchair. No CV, , pulmonary, eye, ENT system symptoms on review. He has movement problems consequent to his Parkinson's. MENTAL STATUS EXAM: Oriented to himself and situation. Speech has some latency, low in volume, coherent, abstraction fair, computation impaired, language function intact, attention span short. Mood and affect somewhat withdrawn, paranoid. LABORATORY DATA: Reviewed. IMPRESSION: Major depressive disorder with psychotic features; anxiety disorder, unspecified; possible Lewy body dementia with behavioral disturbance and depression. PLAN: Continue Seroquel, may consider adding Exelon patch and Namenda for his Lewy body dementia. Something for anxiety is needed. ASIM WISE MD DR: LISA/ferny JOB#: [id number] / [id number]
--- NOTE | 2018-08-07 01:23 | PN ---
DATE: 08/05/2018 PSYCHIATRIC PROGRESS NOTE This is a late entry 08/05/2018, covers elements not covered in my initial note. SUBJECTIVE: I met with the patient in the evening. The patient slept 3-3/4 hours previous night. The patient has been anxious, restless, agitated, and attention seeking. Information from the family reveals that he has had marked mood lability, attention seeking behavior predating his illness. He was put himself on the floor, nursing staff watched the video camera recording to confirm this. He has had extensive workup following the putting himself on the floor. X-rays labs, lactic acid, EKG all unremarkable. EKG sinus rhythm. His indicates he has had similar attention-seeking behaviors for a long time. At times, he was paranoid, believed wires had to be cut because the clock in the home was a bomb. REVIEW OF SYSTEMS: Ambulation impaired, in wheelchair. No CV, , pulmonary, eye system symptoms on review. MENTAL STATUS EXAM: Oriented to himself and situation. Speech moderate latency, low in rate and rhythm, often responses monosyllabic. Abstraction fair, computation impaired, language function intact, attention span short. Mood and affect somewhat withdrawn. LABORATORY DATA: Reviewed. IMPRESSION: Major neurocognitive disorder, Lewy body with delusion, depression, behavioral disturbance; anxiety disorder, unspecified; impulse control disorder, unspecified. PLAN: Start Remeron 7.5 mg p.o. at bedtime to help with insomnia and anxiety, Exelon patch 4.6 mg a day, Namenda 5 mg daily to be increased gradually due to his Lewy body dementia. Maintain rest of the psychotropics unchanged for now including Zyprexa p.r.n. Seroquel 50 at bedtime. MAN Taras WISE MD DR: LISA/ferny JOB#: [id number] / [id number]
[2018-08-07 05:59] VITALS: BP 137/69
[2018-08-07] MEDS: POLYETHYLENE GLYCOL 3350 17 GM PACKET. PO SCH (08:37)
[2018-08-07] MEDS: MEMANTINE 5 MG TABLET. PO SCH (08:37)
[2018-08-07] MEDS: PRAMIPEXOLE 0.25 MG TABLET. PO SCH ×3 (08:39→19:38)
[2018-08-07] MEDS: CARBIDOPA/LEVODOPA 25/100MG TABLET PO SCH ×3 (08:39→19:34)
[2018-08-07] MEDS: MULTIVITAMIN with MINERAL TABLET. PO SCH (08:39)
[2018-08-07] MEDS: CALCIUM CARB/VIT D3 500/200 TABLET PO SCH ×2 (08:40→17:17)
[2018-08-07] MEDS: RIVASTIGMINE 4.6MG PATCH. TD SCH (08:41)
[2018-08-07 15:51] VITALS: BP 137/77
[2018-08-07] MEDS: MIRTAZAPINE 7.5 MG TABLET. PO SCH (19:33)
[2018-08-07] MEDS: ATORVASTATIN CALCIUM 10 MG TABLET. PO SCH (19:33)
[2018-08-07] MEDS: ASPIRIN ENTERIC COATED 81 MG TABLET.DR. PO SCH (19:34)
[2018-08-07] MEDS: QUEtiapine 50 MG TABLET. PO SCH (19:38)
--- NOTE | 2018-08-07 20:33 | PN ---
DATE: 08/06/2018 PSYCHIATRIC PROGRESS NOTE This late entry 08/06/2018 covers elements not covered in my initial note. SUBJECTIVE: I met with the patient in the evening. The patient slept 3-3/4 hours previous night. He was resistive to medications and had addressed this with him individually. When I met with him, he was crying, tearful, labile. Previous night, he had a rapid response and all the workup was negative, x-rays, labs, lactic acid, EKG. This is after he put himself on the floor. REVIEW OF SYSTEMS: Ambulation impaired, in wheelchair. No CV, , pulmonary, eye system symptoms on review. MENTAL STATUS EXAM: The patient is oriented to himself and situation. Speech coherent, rapid at times. Abstraction fair, computation impaired, language function intact, attention span short. Mood and affect remains labile, tearful. LABORATORY DATA: Reviewed. IMPRESSION: Major depressive disorder, recurrent, probable Lewy body dementia with depression, delusions; anxiety disorder, unspecified. PLAN: Add melatonin 3 mg at bedtime for his ongoing insomnia. Maintain Seroquel 50 mg p.o. at bedtime, Remeron 7.5 at bedtime, Exelon patch and Namenda will be gradually adjusted. ASIM WISE MD DR: LISA/ferny JOB#: [id number] / [id number]
--- NOTE | 2018-08-07 20:51 | PDOC ---
Exam Note: Alfonso Note: Please also refer to the separate dictated note~for this date of service dictated separately.~Patient seen individually. Discussed the patient with Nursing staff reviewed the chart.~Reviewed interim history and current functioning. Reviewed vital signs,~Labs/ Radiology~and current medications noted below. Continue current treatment with the changes noted in the dictated addendum note Assessment: Vital Signs: Vital Signs Date Time Temp Pulse Resp B/P (MAP) Pulse Ox O2 Delivery O2 Flow Rate FiO2 08/07/18 15:51 98.1 71 18 137/77 (97) 97 08/06/18 06:32 Room Air I&O Intake and Output 08/07/18 07:00 Intake Total 360 ml Balance 360 ml Intake Oral 360 ml # Voids 1 # Bowel Movements 1 Current Medications: Meds: Current Medications Carbidopa/Levodopa (Sinemet 25/100) 2 tab [id number] PO ; Start 08/03/18 at 18:00 ; Stop 08/03/18 at 18:00; Status DC Gabapentin (Neurontin) 100 mg 1X ONCE PO Last administered on 08/03/18at 15:42 ; Start 08/03/18 at 15:30; Stop 08/03/18 at 15:53; Status DC Quetiapine Fumarate (SEROquel) 50 mg PRN TID PO ; Start 08/03/18 at 15:30; Stop 08/03/18 at 16:49; Status DC Acetaminophen (Tylenol) 650 mg PRN Q4HRS PRN PO PAIN / TEMP; Start 08/03/18 at 16:30 Gabapentin (Neurontin) 100 mg TID PO ; Start 08/03/18 at 21:00; Stop 08/03/18 at 21:00; Status DC Aspirin (Aspirin Enteric Coated) 81 mg HS PO Last administered on 08/07/18at 19: 34; Start 08/03/18 at 21:00 Atorvastatin Calcium (Lipitor) 5 mg QHS PO Last administered on 08/07/18at 19:33 ; Start 08/03/18 at 21:00 Calcium/Vitamin D (Oscal D 500mg/ 200uts) 1 tab BIDWMEALS PO Last administered on 08/07/18at 17:17; Start 08/03/18 at 17:00 Multivitamins/ Calcium (Thera-M Plus) 1 tab DAILY PO Last administered on at 08:39; Start 08/04/18 at 09:00 Polyethylene Glycol (miraLAX) 17 gm DAILY PO Last administered on 08/07/18at 08: 37; Start 08/04/18 at 09:00 Pramipexole Dihydrochloride (miraPEX) 0.125 mg [id number] PO Last administered on at 19:38; Start 08/04/18 at 09:00; Stop 08/07/18 at 23:00 Pramipexole Dihydrochloride (miraPEX) 0.25 mg QHS PO Last administered on 19:40; Start 08/03/18 at 21:00; Stop 08/03/18 at 21:01; Status DC Quetiapine Fumarate (SEROquel) 50 mg QHS PO Last administered on 08/06/18at 21: 06; Start 08/03/18 at 21:00; Stop 08/07/18 at 18:42; Status DC Carbidopa/Levodopa (Sinemet 25/100) 2 tab TID PO Last administered on at 19:34; Start 08/03/18 at 21:00 Multi-Ingredient Ointment (Analgesic [place]) 1 kristina PRN QID PRN TP MUSCLE PAIN; Start 08/03/18 at 18:30 Al Hydroxide/Mg Hydroxide (Mylanta Plus Xs) 15 ml PRN AFTMEALHC PRN PO DYSPEPSIA; Start 08/03/18 at 18:30 Magnesium Hydroxide (Milk Of Magnesia) 2,400 mg PRN QHS PRN PO CONSTIPATION; Start 08/03/18 at 18:30 Memantine (Namenda) 5 mg DAILY PO Last administered on 08/07/18at 08:37; Start 08/05/18 at 10:00; Stop 08/07/18 at 18:06; Status DC Rivastigmine (Exelon) 1 patch DAILY TD Last administered on 08/07/18at 08:41; Start 08/05/18 at 10:00; Stop 08/07/18 at 19:03; Status DC Mirtazapine (Remeron) 7.5 mg QHS PO Last administered on 08/07/18at 19:33; Start 08/05/18 at 21:00 Olanzapine (ZyPREXA ZYDIS) 1.25 mg PRN Q2HR PRN PO ANXIETY / AGITATION Last administered on 08/07/18at 01:35; Start 08/05/18 at 09:30 Memantine (Namenda) 5 mg [id number] PO ; Start 08/08/18 at 09:00 Quetiapine Fumarate (SEROquel) 75 mg QHS PO Last administered on 08/07/18at 19: 38; Start 08/07/18 at 21:00 Rivastigmine (Exelon) 1 patch DAILY TD ; Start 08/08/18 at 09:00 Active Scripts Active Reported Seroquel (Quetiapine Fumarate) 50 Mg Tablet 50 Mg PO HS Multi-Day Plus Minerals Tablet (Multivitamin-Min/Iron/FA/Vit K) 1 Each Tablet 1 Each PO DAILY Mirapex (Pramipexole Di-Hcl) 0.25 Mg Tablet 0.25 Mg PO HS 1 Days Mirapex (Pramipexole Di-Hcl) 0.25 Mg Tablet 0.125 Mg PO TID 4 Days Miralax (Polyethylene Glycol 3350) 17 Gm Powd.pack 17 Gm PO DAILY Gabapentin 100 Mg Capsule 100 Mg PO TID Sinemet 25-100 Mg Tablet (Carbidopa/Levodopa) 1 Each Tablet 2 Tab PO TID Calcium 500 + Vit D 400 Tablet (Calcium Carbonate/Vitamin D3) 1 Each Tablet 1 Each PO BID Atorvastatin Calcium 10 Mg Tablet 5 Mg PO QHS Aspirin Ec (Aspirin) 81 Mg Tablet.dr 81 Mg PO HS Tylenol (Acetaminophen) 325 Mg Tablet 650 Mg PO PRN Q4HRS PRN I have reviewed the current psychotropics carefully including drug interactions. Risk benefit ratio favors no change other than as noted in my dictated progress note. Diagnosis: Problems: (1) Medical clearance for psychiatric admission (2) Anxiety disorder (3) Impulse control disorder (4) Major depressive disorder, recurrent episode (5) Mild cognitive impairment (6) Parkinson's disease ASIM WISE MD Aug 07, 2018 20:51
[2018-08-08 05:55] VITALS: BP 119/73
[2018-08-08] MEDS: CALCIUM CARB/VIT D3 500/200 TABLET PO SCH ×2 (09:14→18:21)
[2018-08-08] MEDS: POLYETHYLENE GLYCOL 3350 17 GM PACKET. PO SCH (09:14)
[2018-08-08] MEDS: CARBIDOPA/LEVODOPA 25/100MG TABLET PO SCH ×3 (09:14→19:26)
[2018-08-08] MEDS: MULTIVITAMIN with MINERAL TABLET. PO SCH (09:14)
[2018-08-08] MEDS: MEMANTINE 5 MG TABLET. PO SCH ×2 (09:15→18:21)
[2018-08-08] MEDS: RIVASTIGMINE 9.5MG PATCH. TD SCH (09:16)
[2018-08-08 16:51] VITALS: BP 131/68
[2018-08-08] MEDS: ASPIRIN ENTERIC COATED 81 MG TABLET.DR. PO SCH (19:26)
[2018-08-08] MEDS: QUEtiapine 50 MG TABLET. PO SCH (19:26)
[2018-08-08] MEDS: MIRTAZAPINE 7.5 MG TABLET. PO SCH (19:29)
[2018-08-08] MEDS: ATORVASTATIN CALCIUM 10 MG TABLET. PO SCH (19:29)
--- NOTE | 2018-08-08 21:10 | PDOC ---
Exam Note: Alfonso Note: Please also refer to the separate dictated note~for this date of service dictated separately.~Patient seen individually. Discussed the patient with Nursing staff reviewed the chart.~Reviewed interim history and current functioning. Reviewed vital signs,~Labs/ Radiology~and current medications noted below. Continue current treatment with the changes noted in the dictated addendum note Assessment: Vital Signs: Vital Signs Date Time Temp Pulse Resp B/P (MAP) Pulse Ox O2 Delivery O2 Flow Rate FiO2 08/08/18 16:51 97.9 81 18 131/68 (89) 98 Room Air I&O Intake and Output 08/08/18 07:00 Intake Total 1320 ml Balance 1320 ml Intake Oral 1320 ml # Voids 1 Current Medications: Meds: Current Medications Carbidopa/Levodopa (Sinemet 25/100) 2 tab [id number] PO ; Start 08/03/18 at 18:00 ; Stop 08/03/18 at 18:00; Status DC Gabapentin (Neurontin) 100 mg 1X ONCE PO Last administered on 08/03/18at 15:42 ; Start 08/03/18 at 15:30; Stop 08/03/18 at 15:53; Status DC Quetiapine Fumarate (SEROquel) 50 mg PRN TID PO ; Start 08/03/18 at 15:30; Stop 08/03/18 at 16:49; Status DC Acetaminophen (Tylenol) 650 mg PRN Q4HRS PRN PO PAIN / TEMP; Start 08/03/18 at 16:30 Gabapentin (Neurontin) 100 mg TID PO ; Start 08/03/18 at 21:00; Stop 08/03/18 at 21:00; Status DC Aspirin (Aspirin Enteric Coated) 81 mg HS PO Last administered on 08/08/18at 19: 26; Start 08/03/18 at 21:00 Atorvastatin Calcium (Lipitor) 5 mg QHS PO Last administered on 08/08/18at 19:29 ; Start 08/03/18 at 21:00 Calcium/Vitamin D (Oscal D 500mg/ 200uts) 1 tab BIDWMEALS PO Last administered on 08/08/18at 18:21; Start 08/03/18 at 17:00 Multivitamins/ Calcium (Thera-M Plus) 1 tab DAILY PO Last administered on at 09:14; Start 08/04/18 at 09:00 Polyethylene Glycol (miraLAX) 17 gm DAILY PO Last administered on 08/08/18at 09: 14; Start 08/04/18 at 09:00 Pramipexole Dihydrochloride (miraPEX) 0.125 mg [id number] PO Last administered on at 19:38; Start 08/04/18 at 09:00; Stop 08/07/18 at 23:00; Status DC Pramipexole Dihydrochloride (miraPEX) 0.25 mg QHS PO Last administered on at 19:40; Start 08/03/18 at 21:00; Stop 08/03/18 at 21:01; Status DC Quetiapine Fumarate (SEROquel) 50 mg QHS PO Last administered on 08/06/18at 21: 06; Start 08/03/18 at 21:00; Stop 08/07/18 at 18:42; Status DC Carbidopa/Levodopa (Sinemet 25/100) 2 tab TID PO Last administered on at 19:26; Start 08/03/18 at 21:00 Multi-Ingredient Ointment (Analgesic [place]) 1 kristina PRN QID PRN TP MUSCLE PAIN; Start 08/03/18 at 18:30 Al Hydroxide/Mg Hydroxide (Mylanta Plus Xs) 15 ml PRN AFTMEALHC PRN PO DYSPEPSIA; Start 08/03/18 at 18:30 Magnesium Hydroxide (Milk Of Magnesia) 2,400 mg PRN QHS PRN PO CONSTIPATION; Start 08/03/18 at 18:30 Memantine (Namenda) 5 mg DAILY PO Last administered on 08/07/18at 08:37; Start 08/05/18 at 10:00; Stop 08/07/18 at 18:06; Status DC Rivastigmine (Exelon) 1 patch DAILY TD Last administered on 08/07/18at 08:41; Start 08/05/18 at 10:00; Stop 08/07/18 at 19:03; Status DC Mirtazapine (Remeron) 7.5 mg QHS PO Last administered on 08/08/18at 19:29; Start 08/05/18 at 21:00 Olanzapine (ZyPREXA ZYDIS) 1.25 mg PRN Q2HR PRN PO ANXIETY / AGITATION Last administered on 08/07/18at 01:35; Start 08/05/18 at 09:30 Memantine (Namenda) 5 mg [id number] PO Last administered on 08/08/18at 18:21; Start 08/08/18 at 09:00 Quetiapine Fumarate (SEROquel) 75 mg QHS PO Last administered on 08/08/18at 19: 26; Start 08/07/18 at 21:00 Rivastigmine (Exelon) 1 patch DAILY TD Last administered on 08/08/18at 09:16; Start 08/08/18 at 09:00 Active Scripts Active Reported Seroquel (Quetiapine Fumarate) 50 Mg Tablet 50 Mg PO HS Multi-Day Plus Minerals Tablet (Multivitamin-Min/Iron/FA/Vit K) 1 Each Tablet 1 Each PO DAILY Mirapex (Pramipexole Di-Hcl) 0.25 Mg Tablet 0.25 Mg PO HS 1 Days Mirapex (Pramipexole Di-Hcl) 0.25 Mg Tablet 0.125 Mg PO TID 4 Days Miralax (Polyethylene Glycol 3350) 17 Gm Powd.pack 17 Gm PO DAILY Gabapentin 100 Mg Capsule 100 Mg PO TID Sinemet 25-100 Mg Tablet (Carbidopa/Levodopa) 1 Each Tablet 2 Tab PO TID Calcium 500 + Vit D 400 Tablet (Calcium Carbonate/Vitamin D3) 1 Each Tablet 1 Each PO BID Atorvastatin Calcium 10 Mg Tablet 5 Mg PO QHS Aspirin Ec (Aspirin) 81 Mg Tablet.dr 81 Mg PO HS Tylenol (Acetaminophen) 325 Mg Tablet 650 Mg PO PRN Q4HRS PRN I have reviewed the current psychotropics carefully including drug interactions. Risk benefit ratio favors no change other than as noted in my dictated progress note. Diagnosis: Problems: (1) Medical clearance for psychiatric admission (2) Anxiety disorder (3) Impulse control disorder (4) Major depressive disorder, recurrent episode (5) Mild cognitive impairment (6) Parkinson's disease ASIM WISE MD Aug 08, 2018 21:10
--- NOTE | 2018-08-08 21:58 | PN ---
DATE: 08/07/2018 This is a late entry, 08/07/2018, covers the elements not covered in my initial note. SUBJECTIVE: I met with the patient in the evening. This was a lengthy meeting as the patient had a lot of complaints about various facets of the unit including staff members believed he was going to be killed at night, extremely paranoid, labile, anxious, and red in his face as he was explaining all his concerns to me. He wanted me to fire certain nursing staff members, wanted rather drastic action taken because of what he perceived was going to happen to him. He slept 4 hours the previous evening. He is convinced that I have stolen his socks and he is fixated, obsessed about this with the nursing staff and about the nursing staff, he feels they are going to kill him tonight. At times, he has made statement that he cannot walk and then at the same time, he is walking and ambulating with a walker. He is extremely anxious, depressed. REVIEW OF SYSTEMS: Ambulation impaired with walker. No CV, , pulmonary, eye system symptoms on review. Gait unsteady. MENTAL STATUS EXAM: Oriented to himself and situation. Speech coherent, rapid at times. Abstraction fair. Computation able to do one step serial seven. No active suicidal or homicidal ideation, quite psychotic, and paranoid. Attention span short. Language function intact. IMPRESSION: Major depressive disorder with psychotic features; major neurocognitive disorder, early Lewy body with delusion, depression, behavioral disturbance; anxiety disorder, unspecified. PLAN: The patient is on Namenda 5 mg daily, we will increase to 5 mg two times a day, Exelon patch from 4.6 mg a day to 9.5 mg a day after he has been on 4.6 mg for 5 days. Increase Seroquel from 50 mg at bedtime to 75 mg at bedtime given his psychotic symptoms. Consider Clozaril if Seroquel fails, Remeron, we will continue 7.5 mg at bedtime, Zyprexa as needed. MAN Taras WISE MD DR: LISA/ferny JOB#: [id number] / [id number]
[2018-08-09 05:48] VITALS: BP 144/71
[2018-08-09] MEDS: CALCIUM CARB/VIT D3 500/200 TABLET PO SCH ×2 (11:28→15:23)
[2018-08-09] MEDS: RIVASTIGMINE 9.5MG PATCH. TD SCH (11:28)
[2018-08-09] MEDS: POLYETHYLENE GLYCOL 3350 17 GM PACKET. PO SCH (11:28)
[2018-08-09] MEDS: CARBIDOPA/LEVODOPA 25/100MG TABLET PO SCH ×3 (11:28→20:18)
[2018-08-09] MEDS: MEMANTINE 5 MG TABLET. PO SCH ×2 (11:28→15:23)
[2018-08-09] MEDS: MULTIVITAMIN with MINERAL TABLET. PO SCH (11:29)
[2018-08-09 16:49] VITALS: BP 136/85
[2018-08-09] MEDS: ASPIRIN ENTERIC COATED 81 MG TABLET.DR. PO SCH (20:17)
[2018-08-09] MEDS: QUEtiapine 50 MG TABLET. PO SCH (20:18)
[2018-08-09] MEDS: ATORVASTATIN CALCIUM 10 MG TABLET. PO SCH (20:18)
[2018-08-09] MEDS: MIRTAZAPINE 7.5 MG TABLET. PO SCH (20:18)
--- NOTE | 2018-08-09 20:44 | PDOC ---
Exam Note: Alfonso Note: Please also refer to the separate dictated note~for this date of service dictated separately.~Patient seen individually. Discussed the patient with Nursing staff reviewed the chart.~Reviewed interim history and current functioning. Reviewed vital signs,~Labs/ Radiology~and current medications noted below. Continue current treatment with the changes noted in the dictated addendum note Assessment: Vital Signs: Vital Signs Date Time Temp Pulse Resp B/P (MAP) Pulse Ox O2 Delivery O2 Flow Rate FiO2 08/09/18 16:49 99.0 85 20 136/85 (102) 95 08/08/18 16:51 Room Air I&O Intake and Output 08/09/18 07:00 Intake Total 1800 ml Balance 1800 ml Intake Oral 1800 ml # Voids 1 Current Medications: Meds: Current Medications Carbidopa/Levodopa (Sinemet 25/100) 2 tab [id number] PO ; Start 08/03/18 at 18:00 ; Stop 08/03/18 at 18:00; Status DC Gabapentin (Neurontin) 100 mg 1X ONCE PO Last administered on 08/03/18at 15:42 ; Start 08/03/18 at 15:30; Stop 08/03/18 at 15:53; Status DC Quetiapine Fumarate (SEROquel) 50 mg PRN TID PO ; Start 08/03/18 at 15:30; Stop 08/03/18 at 16:49; Status DC Acetaminophen (Tylenol) 650 mg PRN Q4HRS PRN PO PAIN / TEMP; Start 08/03/18 at 16:30 Gabapentin (Neurontin) 100 mg TID PO ; Start 08/03/18 at 21:00; Stop 08/03/18 at 21:00; Status DC Aspirin (Aspirin Enteric Coated) 81 mg HS PO Last administered on 08/09/18at 20: 17; Start 08/03/18 at 21:00 Atorvastatin Calcium (Lipitor) 5 mg QHS PO Last administered on 08/09/18at 20:18 ; Start 08/03/18 at 21:00 Calcium/Vitamin D (Oscal D 500mg/ 200uts) 1 tab BIDWMEALS PO Last administered on 08/09/18at 15:23; Start 08/03/18 at 17:00 Multivitamins/ Calcium (Thera-M Plus) 1 tab DAILY PO Last administered on at 11:29; Start 08/04/18 at 09:00 Polyethylene Glycol (miraLAX) 17 gm DAILY PO Last administered on 08/09/18at 11: 28; Start 08/04/18 at 09:00 Pramipexole Dihydrochloride (miraPEX) 0.125 mg [id number] PO Last administered on at 19:38; Start 08/04/18 at 09:00; Stop 08/07/18 at 23:00; Status DC Pramipexole Dihydrochloride (miraPEX) 0.25 mg QHS PO Last administered on at 19:40; Start 08/03/18 at 21:00; Stop 08/03/18 at 21:01; Status DC Quetiapine Fumarate (SEROquel) 50 mg QHS PO Last administered on 08/06/18at 21: 06; Start 08/03/18 at 21:00; Stop 08/07/18 at 18:42; Status DC Carbidopa/Levodopa (Sinemet 25/100) 2 tab TID PO Last administered on at 20:18; Start 08/03/18 at 21:00 Multi-Ingredient Ointment (Analgesic [place]) 1 kristina PRN QID PRN TP MUSCLE PAIN; Start 08/03/18 at 18:30 Al Hydroxide/Mg Hydroxide (Mylanta Plus Xs) 15 ml PRN AFTMEALHC PRN PO DYSPEPSIA; Start 08/03/18 at 18:30 Magnesium Hydroxide (Milk Of Magnesia) 2,400 mg PRN QHS PRN PO CONSTIPATION; Start 08/03/18 at 18:30 Memantine (Namenda) 5 mg DAILY PO Last administered on 08/07/18at 08:37; Start 08/05/18 at 10:00; Stop 08/07/18 at 18:06; Status DC Rivastigmine (Exelon) 1 patch DAILY TD Last administered on 08/07/18at 08:41; Start 08/05/18 at 10:00; Stop 08/07/18 at 19:03; Status DC Mirtazapine (Remeron) 7.5 mg QHS PO Last administered on 08/09/18at 20:18; Start 08/05/18 at 21:00 Olanzapine (ZyPREXA ZYDIS) 1.25 mg PRN Q2HR PRN PO ANXIETY / AGITATION Last administered on 08/07/18at 01:35; Start 08/05/18 at 09:30 Memantine (Namenda) 5 mg [id number] PO Last administered on 08/09/18at 15:23; Start 08/08/18 at 09:00 Quetiapine Fumarate (SEROquel) 75 mg QHS PO Last administered on 08/09/18at 20: 18; Start 08/07/18 at 21:00 Rivastigmine (Exelon) 1 patch DAILY TD Last administered on 08/09/18at 11:28; Start 08/08/18 at 09:00 Active Scripts Active Reported Seroquel (Quetiapine Fumarate) 50 Mg Tablet 50 Mg PO HS Multi-Day Plus Minerals Tablet (Multivitamin-Min/Iron/FA/Vit K) 1 Each Tablet 1 Each PO DAILY Mirapex (Pramipexole Di-Hcl) 0.25 Mg Tablet 0.25 Mg PO HS 1 Days Mirapex (Pramipexole Di-Hcl) 0.25 Mg Tablet 0.125 Mg PO TID 4 Days Miralax (Polyethylene Glycol 3350) 17 Gm Powd.pack 17 Gm PO DAILY Gabapentin 100 Mg Capsule 100 Mg PO TID Sinemet 25-100 Mg Tablet (Carbidopa/Levodopa) 1 Each Tablet 2 Tab PO TID Calcium 500 + Vit D 400 Tablet (Calcium Carbonate/Vitamin D3) 1 Each Tablet 1 Each PO BID Atorvastatin Calcium 10 Mg Tablet 5 Mg PO QHS Aspirin Ec (Aspirin) 81 Mg Tablet.dr 81 Mg PO HS Tylenol (Acetaminophen) 325 Mg Tablet 650 Mg PO PRN Q4HRS PRN I have reviewed the current psychotropics carefully including drug interactions. Risk benefit ratio favors no change other than as noted in my dictated progress note. Diagnosis: Problems: (1) Medical clearance for psychiatric admission (2) Anxiety disorder (3) Impulse control disorder (4) Major depressive disorder, recurrent episode (5) Mild cognitive impairment (6) Parkinson's disease ASIM WISE MD Aug 09, 2018 20:44
[2018-08-10 06:20] VITALS: BP 128/74
[2018-08-10] MEDS: CALCIUM CARB/VIT D3 500/200 TABLET PO SCH ×2 (07:56→18:21)
[2018-08-10] MEDS: POLYETHYLENE GLYCOL 3350 17 GM PACKET. PO SCH (07:56)
[2018-08-10] MEDS: CARBIDOPA/LEVODOPA 25/100MG TABLET PO SCH ×3 (07:56→19:39)
[2018-08-10] MEDS: RIVASTIGMINE 9.5MG PATCH. TD SCH (07:56)
[2018-08-10] MEDS: MEMANTINE 5 MG TABLET. PO SCH ×2 (07:56→18:21)
[2018-08-10] MEDS: MULTIVITAMIN with MINERAL TABLET. PO SCH (07:56)
[2018-08-10 16:47] VITALS: BP 156/68
[2018-08-10] MEDS: ASPIRIN ENTERIC COATED 81 MG TABLET.DR. PO SCH (19:38)
[2018-08-10] MEDS: ATORVASTATIN CALCIUM 10 MG TABLET. PO SCH (19:38)
[2018-08-10] MEDS: QUEtiapine 50 MG TABLET. PO SCH (19:39)
[2018-08-10] MEDS: MIRTAZAPINE 15 MG TABLET PO SCH (19:40)
--- NOTE | 2018-08-10 20:48 | PDOC ---
Exam Note: Alfonso Note: Please also refer to the separate dictated note~for this date of service dictated separately.~Patient seen individually. Discussed the patient with Nursing staff reviewed the chart.~Reviewed interim history and current functioning. Reviewed vital signs,~Labs/ Radiology~and current medications noted below. Continue current treatment with the changes noted in the dictated addendum note Assessment: Vital Signs: Vital Signs Date Time Temp Pulse Resp B/P (MAP) Pulse Ox O2 Delivery O2 Flow Rate FiO2 08/10/18 16:47 98.0 80 19 156/68 (97) 96 08/08/18 16:51 Room Air I&O Intake and Output 08/10/18 07:00 Intake Total 1080 ml Balance 1080 ml Intake Oral 1080 ml # Voids 1 # Bowel Movements 1 Current Medications: Meds: Current Medications Carbidopa/Levodopa (Sinemet 25/100) 2 tab [id number] PO ; Start 08/03/18 at 18:00 ; Stop 08/03/18 at 18:00; Status DC Gabapentin (Neurontin) 100 mg 1X ONCE PO Last administered on 08/03/18at 15:42 ; Start 08/03/18 at 15:30; Stop 08/03/18 at 15:53; Status DC Quetiapine Fumarate (SEROquel) 50 mg PRN TID PO ; Start 08/03/18 at 15:30; Stop 08/03/18 at 16:49; Status DC Acetaminophen (Tylenol) 650 mg PRN Q4HRS PRN PO PAIN / TEMP; Start 08/03/18 at 16:30 Gabapentin (Neurontin) 100 mg TID PO ; Start 08/03/18 at 21:00; Stop 08/03/18 at 21:00; Status DC Aspirin (Aspirin Enteric Coated) 81 mg HS PO Last administered on 08/10/18at 19: 38; Start 08/03/18 at 21:00 Atorvastatin Calcium (Lipitor) 5 mg QHS PO Last administered on 08/10/18at 19:38 ; Start 08/03/18 at 21:00 Calcium/Vitamin D (Oscal D 500mg/ 200uts) 1 tab BIDWMEALS PO Last administered on 08/10/18at 18:21; Start 08/03/18 at 17:00 Multivitamins/ Calcium (Thera-M Plus) 1 tab DAILY PO Last administered on at 07:56; Start 08/04/18 at 09:00 Polyethylene Glycol (miraLAX) 17 gm DAILY PO Last administered on 08/10/18at 07: 56; Start 08/04/18 at 09:00 Pramipexole Dihydrochloride (miraPEX) 0.125 mg [id number] PO Last administered on at 19:38; Start 08/04/18 at 09:00; Stop 08/07/18 at 23:00; Status DC Pramipexole Dihydrochloride (miraPEX) 0.25 mg QHS PO Last administered on at 19:40; Start 08/03/18 at 21:00; Stop 08/03/18 at 21:01; Status DC Quetiapine Fumarate (SEROquel) 50 mg QHS PO Last administered on 08/06/18at 21: 06; Start 08/03/18 at 21:00; Stop 08/07/18 at 18:42; Status DC Carbidopa/Levodopa (Sinemet 25/100) 2 tab TID PO Last administered on at 19:39; Start 08/03/18 at 21:00 Multi-Ingredient Ointment (Analgesic [place]) 1 kristina PRN QID PRN TP MUSCLE PAIN; Start 08/03/18 at 18:30 Al Hydroxide/Mg Hydroxide (Mylanta Plus Xs) 15 ml PRN AFTMEALHC PRN PO DYSPEPSIA; Start 08/03/18 at 18:30 Magnesium Hydroxide (Milk Of Magnesia) 2,400 mg PRN QHS PRN PO CONSTIPATION; Start 08/03/18 at 18:30 Memantine (Namenda) 5 mg DAILY PO Last administered on 08/07/18at 08:37; Start 08/05/18 at 10:00; Stop 08/07/18 at 18:06; Status DC Rivastigmine (Exelon) 1 patch DAILY TD Last administered on 08/07/18at 08:41; Start 08/05/18 at 10:00; Stop 08/07/18 at 19:03; Status DC Mirtazapine (Remeron) 7.5 mg QHS PO Last administered on 08/09/18at 20:18; Start 08/05/18 at 21:00; Stop 08/10/18 at 17:15; Status DC Olanzapine (ZyPREXA ZYDIS) 1.25 mg PRN Q2HR PRN PO ANXIETY / AGITATION Last administered on 08/10/18at 18:28; Start 08/05/18 at 09:30 Memantine (Namenda) 5 mg [id number] PO Last administered on 08/10/18at 18:21; Start 08/08/18 at 09:00 Quetiapine Fumarate (SEROquel) 75 mg QHS PO Last administered on 08/10/18at 19: 39; Start 08/07/18 at 21:00 Rivastigmine (Exelon) 1 patch DAILY TD Last administered on 08/10/18at 07:56; Start 08/08/18 at 09:00 Mirtazapine (Remeron) 15 mg QHS PO Last administered on 08/10/18at 19:40; Start 08/10/18 at 21:00 Active Scripts Active Reported Seroquel (Quetiapine Fumarate) 50 Mg Tablet 50 Mg PO HS Multi-Day Plus Minerals Tablet (Multivitamin-Min/Iron/FA/Vit K) 1 Each Tablet 1 Each PO DAILY Mirapex (Pramipexole Di-Hcl) 0.25 Mg Tablet 0.25 Mg PO HS 1 Days Mirapex (Pramipexole Di-Hcl) 0.25 Mg Tablet 0.125 Mg PO TID 4 Days Miralax (Polyethylene Glycol 3350) 17 Gm Powd.pack 17 Gm PO DAILY Gabapentin 100 Mg Capsule 100 Mg PO TID Sinemet 25-100 Mg Tablet (Carbidopa/Levodopa) 1 Each Tablet 2 Tab PO TID Calcium 500 + Vit D 400 Tablet (Calcium Carbonate/Vitamin D3) 1 Each Tablet 1 Each PO BID Atorvastatin Calcium 10 Mg Tablet 5 Mg PO QHS Aspirin Ec (Aspirin) 81 Mg Tablet.dr 81 Mg PO HS Tylenol (Acetaminophen) 325 Mg Tablet 650 Mg PO PRN Q4HRS PRN I have reviewed the current psychotropics carefully including drug interactions. Risk benefit ratio favors no change other than as noted in my dictated progress note. Diagnosis: Problems: (1) Medical clearance for psychiatric admission (2) Anxiety disorder (3) Impulse control disorder (4) Major depressive disorder, recurrent episode (5) Mild cognitive impairment (6) Parkinson's disease ASIM WISE MD Aug 10, 2018 20:48
--- NOTE | 2018-08-10 23:26 | PN ---
DATE: 08/08/2018 This is a late entry 08/08/2018 covers elements not covered in my initial note. SUBJECTIVE: I met with the patient in the evening. The patient slept 2-1/2 hours previous night. He has been calm, pleasant at night and was tearful, apologetic previous night and very apologetic to me as well as I met with him about how abrasive he was the day before. He is pleasant at lunchtime. Ambulates with a walker secondary to Parkinson's. REVIEW OF SYSTEMS: No CV, , pulmonary, eye system symptoms on review. MENTAL STATUS EXAM: Oriented to himself and situation. Speech is coherent. Thought processes goal directed. Intellect average. Insight showing improvement. Attention span short. Mood and affect remains somewhat dysphoric, anxious. He remains somewhat paranoid, but less so than before. No suicidal or homicidal ideation. LABORATORY DATA: Reviewed. IMPRESSION: Unchanged from initial note. PLAN: No change from initial note. Namenda was increased. Maintain Seroquel, Exelon patch, Remeron. May add an SSRI agent as well. MAN Taras WISE MD DR: LISA/ferny JOB#: [id number] / [id number]
--- NOTE | 2018-08-11 03:08 | PN ---
DATE: 08/09/2018 PSYCHIATRIC PROGRESS NOTE This late entry 08/09/2018 covers elements not covered in my initial note. SUBJECTIVE: I met with the patient in the evening, staffed at a treatment team meeting with the entire team in the morning and the patient's , Isaura, attended the conference. Reviewed his history at length, diagnosis, treatment, disposition plans. The patient slept 8 hours previous evening. REVIEW OF SYSTEMS: Ambulation impaired with walker secondary to Parkinson's. No CV, , pulmonary, eye system symptoms on review. He continues to apologize for being irritable, labile, paranoid a couple of days back, somewhat obsessive. MENTAL STATUS EXAM: Reasonably oriented. Speech coherent. He was holding my hand repeatedly trying to reassure me that he was apologizing. Abstraction fair, computation impaired, language function intact. Mood and affect remain somewhat dysphoric. LABORATORY DATA: Reviewed. 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 Rest unchanged. PLAN: Continue current psychotropics. We will increase the Remeron to 15 mg at bedtime. Make further adjustments as clinically indicated. MAN Taras WISE MD DR: LISA/ferny JOB#: [id number] / [id number]
[2018-08-11 06:44] VITALS: BP 140/93
[2018-08-11 07:00] LABS: BASO # 0.1 x10^3/uL (0.0-0.2); BASO % 1 % (0-3); EOS # 0.4 x10^3/uL (0.0-0.7); EOS % 6 % (0-3); HEMATOCRIT 42.7 % (39.0-53.0); HEMOGLOBIN 14.5 g/dL (13.0-17.5); LYMPH # 0.8 x10^3/uL (1.0-4.8); LYMPH % 13 % (24-48); MEAN CORPUSCULAR HEMOGLOBIN 32 pg (25-35); MEAN CORPUSCULAR HGB CONC 34 g/dL (31-37); MEAN CORPUSCULAR VOLUME 94 fL (79-100); MONO # 0.8 x10^3/uL (0.0-1.1); MONO % 14 % (0-9); NEUT % 67 % (31-73); PLATELET COUNT 159 x10^3/uL (140-400); RED BLOOD COUNT 4.53 x10^6/uL (4.30-5.70); RED CELL DISTRIBUTION WIDTH 13.8 % (11.5-14.5)
[2018-08-11 07:13] LABS: ALBUMIN 3.5 g/dL (3.4-5.0); ALBUMIN/GLOBULIN RATIO 1.2 (1.0-1.7); CALCIUM 9.2 mg/dL (8.5-10.1); GFR 72.3; POTASSIUM 3.8 mmol/L (3.5-5.1); TOTAL BILIRUBIN 0.7 mg/dL (0.2-1.0); TOTAL PROTEIN 6.4 g/dL (6.4-8.2)
[2018-08-11] MEDS: POLYETHYLENE GLYCOL 3350 17 GM PACKET. PO SCH (07:59)
[2018-08-11] MEDS: CALCIUM CARB/VIT D3 500/200 TABLET PO SCH ×2 (08:00→17:50)
[2018-08-11] MEDS: MEMANTINE 5 MG TABLET. PO SCH ×2 (08:00→17:50)
[2018-08-11] MEDS: RIVASTIGMINE 9.5MG PATCH. TD SCH (08:00)
[2018-08-11] MEDS: CARBIDOPA/LEVODOPA 25/100MG TABLET PO SCH ×3 (08:00→20:23)
[2018-08-11] MEDS: MULTIVITAMIN with MINERAL TABLET. PO SCH (08:00)
[2018-08-11 16:25] VITALS: BP 129/79
[2018-08-11] MEDS: ASPIRIN ENTERIC COATED 81 MG TABLET.DR. PO SCH (20:22)
[2018-08-11] MEDS: ATORVASTATIN CALCIUM 10 MG TABLET. PO SCH (20:22)
[2018-08-11] MEDS: QUEtiapine 50 MG TABLET. PO SCH (20:23)
[2018-08-11] MEDS: MIRTAZAPINE 15 MG TABLET PO SCH (20:23)
--- NOTE | 2018-08-11 23:01 | PDOC ---
Exam Note: Alfonso Note: Please also refer to the separate dictated note~for this date of service dictated separately.~Patient seen individually. Discussed the patient with Nursing staff reviewed the chart.~Reviewed interim history and current functioning. Reviewed vital signs,~Labs/ Radiology~and current medications noted below. Continue current treatment with the changes noted in the dictated addendum note Assessment: Vital Signs: Vital Signs Date Time Temp Pulse Resp B/P (MAP) Pulse Ox O2 Delivery O2 Flow Rate FiO2 08/11/18 16:25 97.3 71 18 129/79 (96) 94 08/08/18 16:51 Room Air I&O Intake and Output 08/11/18 07:00 Intake Total 1080 ml Balance 1080 ml Intake Oral 1080 ml Labs: Laboratory Tests Test 08/11/18 06:30 White Blood Count 6.0 x10^3/uL (4.0-11.0) Red Blood Count 4.53 x10^6/uL (4.30-5.70) Hemoglobin 14.5 g/dL (13.0-17.5) Hematocrit 42.7 % (39.0-53.0) Mean Corpuscular Volume 94 fL (79-100) Mean Corpuscular Hemoglobin 32 pg (25-35) Mean Corpuscular Hemoglobin Concent 34 g/dL (31-37) Red Cell Distribution Width 13.8 % (11.5-14.5) Platelet Count 159 x10^3/uL (140-400) Neutrophils (%) (Auto) 67 % (31-73) Lymphocytes (%) (Auto) 13 % (24-48) L Monocytes (%) (Auto) 14 % (0-9) H Eosinophils (%) (Auto) 6 % (0-3) H Basophils (%) (Auto) 1 % (0-3) Neutrophils # (Auto) 4.0 x10^3uL (1.8-7.7) Lymphocytes # (Auto) 0.8 x10^3/uL (1.0-4.8) L Monocytes # (Auto) 0.8 x10^3/uL (0.0-1.1) Eosinophils # (Auto) 0.4 x10^3/uL (0.0-0.7) Basophils # (Auto) 0.1 x10^3/uL (0.0-0.2) Sodium Level 143 mmol/L (136-145) Potassium Level 3.8 mmol/L (3.5-5.1) Chloride Level 109 mmol/L (98-107) H Carbon Dioxide Level 29 mmol/L (21-32) Anion Gap 5 (6-14) L Blood Urea Nitrogen 24 mg/dL (8-26) Creatinine 1.0 mg/dL (0.7-1.3) Estimated GFR (Cockcroft-Gault) 72.3 BUN/Creatinine Ratio 24 (6-20) H Glucose Level 82 mg/dL (70-99) Calcium Level 9.2 mg/dL (8.5-10.1) Total Bilirubin 0.7 mg/dL (0.2-1.0) Aspartate Amino Transferase (AST) 21 U/L (15-37) Alanine Aminotransferase (ALT) 16 U/L (16-63) Alkaline Phosphatase 75 U/L (46-116) Total Protein 6.4 g/dL (6.4-8.2) Albumin 3.5 g/dL (3.4-5.0) Albumin/Globulin Ratio 1.2 (1.0-1.7) Current Medications: Meds: Current Medications Carbidopa/Levodopa (Sinemet 25/100) 2 tab [id number] PO ; Start 08/03/18 at 18:00 ; Stop 08/03/18 at 18:00; Status DC Gabapentin (Neurontin) 100 mg 1X ONCE PO Last administered on 08/03/18at 15:42 ; Start 08/03/18 at 15:30; Stop 08/03/18 at 15:53; Status DC Quetiapine Fumarate (SEROquel) 50 mg PRN TID PO ; Start 08/03/18 at 15:30; Stop 08/03/18 at 16:49; Status DC Acetaminophen (Tylenol) 650 mg PRN Q4HRS PRN PO PAIN / TEMP; Start 08/03/18 at 16:30 Gabapentin (Neurontin) 100 mg TID PO ; Start 08/03/18 at 21:00; Stop 08/03/18 at 21:00; Status DC Aspirin (Aspirin Enteric Coated) 81 mg HS PO Last administered on 08/11/18at 20: 22; Start 08/03/18 at 21:00 Atorvastatin Calcium (Lipitor) 5 mg QHS PO Last administered on 08/11/18at 20:22 ; Start 08/03/18 at 21:00 Calcium/Vitamin D (Oscal D 500mg/ 200uts) 1 tab BIDWMEALS PO Last administered on 08/11/18 17:50; Start 08/03/18 at 17:00 Multivitamins/ Calcium (Thera-M Plus) 1 tab DAILY PO Last administered on 08:00; Start 08/04/18 at 09:00 Polyethylene Glycol (miraLAX) 17 gm DAILY PO Last administered on 08/11/18at 07: 59; Start 08/04/18 at 09:00 Pramipexole Dihydrochloride (miraPEX) 0.125 mg [id number] PO Last administered on at 19:38; Start 08/04/18 at 09:00; Stop 08/07/18 at 23:00; Status DC Pramipexole Dihydrochloride (miraPEX) 0.25 mg QHS PO Last administered on at 19:40; Start 08/03/18 at 21:00; Stop 08/03/18 at 21:01; Status DC Quetiapine Fumarate (SEROquel) 50 mg QHS PO Last administered on 08/06/18at 21: 06; Start 08/03/18 at 21:00; Stop 08/07/18 at 18:42; Status DC Carbidopa/Levodopa (Sinemet 25/100) 2 tab TID PO Last administered on at 20:23; Start 08/03/18 at 21:00 Multi-Ingredient Ointment (Analgesic [place]) 1 kristina PRN QID PRN TP MUSCLE PAIN; Start 08/03/18 at 18:30 Al Hydroxide/Mg Hydroxide (Mylanta Plus Xs) 15 ml PRN AFTMEALHC PRN PO DYSPEPSIA; Start 08/03/18 at 18:30 Magnesium Hydroxide (Milk Of Magnesia) 2,400 mg PRN QHS PRN PO CONSTIPATION; Start 08/03/18 at 18:30 Memantine (Namenda) 5 mg DAILY PO Last administered on 08/07/18at 08:37; Start 08/05/18 at 10:00; Stop 08/07/18 at 18:06; Status DC Rivastigmine (Exelon) 1 patch DAILY TD Last administered on 08/07/18at 08:41; Start 08/05/18 at 10:00; Stop 08/07/18 at 19:03; Status DC Mirtazapine (Remeron) 7.5 mg QHS PO Last administered on 08/09/18at 20:18; Start 08/05/18 at 21:00; Stop 08/10/18 at 17:15; Status DC Olanzapine (ZyPREXA ZYDIS) 1.25 mg PRN Q2HR PRN PO ANXIETY / AGITATION Last administered on 08/11/18at 17:49; Start 08/05/18 at 09:30 Memantine (Namenda) 5 mg [id number] PO Last administered on 08/11/18at 17:50; Start 08/08/18 at 09:00 Quetiapine Fumarate (SEROquel) 75 mg QHS PO Last administered on 08/11/18at 20: 23; Start 08/07/18 at 21:00 Rivastigmine (Exelon) 1 patch DAILY TD Last administered on 08/11/18at 08:00; Start 08/08/18 at 09:00 Mirtazapine (Remeron) 15 mg QHS PO Last administered on 08/11/18at 20:23; Start 08/10/18 at 21:00 Sertraline HCl (Zoloft) 25 mg DAILY PO ; Start 08/12/18 at 09:00 Active Scripts Active Reported Seroquel (Quetiapine Fumarate) 50 Mg Tablet 50 Mg PO HS Multi-Day Plus Minerals Tablet (Multivitamin-Min/Iron/FA/Vit K) 1 Each Tablet 1 Each PO DAILY Mirapex (Pramipexole Di-Hcl) 0.25 Mg Tablet 0.25 Mg PO HS 1 Days Mirapex (Pramipexole Di-Hcl) 0.25 Mg Tablet 0.125 Mg PO TID 4 Days Miralax (Polyethylene Glycol 3350) 17 Gm Powd.pack 17 Gm PO DAILY Gabapentin 100 Mg Capsule 100 Mg PO TID Sinemet 25-100 Mg Tablet (Carbidopa/Levodopa) 1 Each Tablet 2 Tab PO TID Calcium 500 + Vit D 400 Tablet (Calcium Carbonate/Vitamin D3) 1 Each Tablet 1 Each PO BID Atorvastatin Calcium 10 Mg Tablet 5 Mg PO QHS Aspirin Ec (Aspirin) 81 Mg Tablet. 81 Mg PO HS Tylenol (Acetaminophen) 325 Mg Tablet 650 Mg PO PRN Q4HRS PRN I have reviewed the current psychotropics carefully including drug interactions. Risk benefit ratio favors no change other than as noted in my dictated progress note. Diagnosis: Problems: (1) Medical clearance for psychiatric admission (2) Anxiety disorder (3) Impulse control disorder (4) Major depressive disorder, recurrent episode (5) Mild cognitive impairment (6) Parkinson's disease ASIM WISE MD Aug 11, 2018 23:01
[2018-08-12 06:21] VITALS: BP 125/78
[2018-08-12] MEDS: MEMANTINE 5 MG TABLET. PO SCH ×2 (07:50→18:34)
[2018-08-12] MEDS: MULTIVITAMIN with MINERAL TABLET. PO SCH (07:50)
[2018-08-12] MEDS: POLYETHYLENE GLYCOL 3350 17 GM PACKET. PO SCH (07:50)
[2018-08-12] MEDS: RIVASTIGMINE 9.5MG PATCH. TD SCH (07:50)
[2018-08-12] MEDS: CALCIUM CARB/VIT D3 500/200 TABLET PO SCH ×2 (07:50→18:34)
[2018-08-12] MEDS: CARBIDOPA/LEVODOPA 25/100MG TABLET PO SCH ×3 (07:50→20:05)
[2018-08-12] MEDS: SERTRALINE 25 MG TABLET. PO SCH (07:51)
[2018-08-12 16:34] VITALS: BP 138/78
--- NOTE | 2018-08-12 17:47 | PN ---
DATE: 08/10/2018 PSYCHIATRIC PROGRESS NOTE This late entry 08/10/2018 covers elements, not covered in my initial note. SUBJECTIVE: I met with the patient in the evening. The patient slept 2-3/4 hours previous night. He has had a better day, less anxious, less paranoid, more lucid. REVIEW OF SYSTEMS: Ambulation impaired with walker. No CV, , pulmonary, eye system symptoms on review. MENTAL STATUS EXAM: Reasonably oriented. Speech is coherent, abstraction fair, computation able to do 2-step serial 7s, remembered 3/3 objects at 3 minutes. No active suicidal or homicidal ideation. Mood and affect is improved, less anxious, less labile. LABORATORY DATA: Reviewed. IMPRESSION: Unchanged from initial note. PLAN: Increase Remeron from 7.5 to 15 mg at bedtime to help with insomnia and anxiety. Rest unchanged. MAN Taras WISE MD DR: LISA/ferny JOB#: [id number] / [id number]
[2018-08-12] MEDS: ASPIRIN ENTERIC COATED 81 MG TABLET.DR. PO SCH (20:05)
[2018-08-12] MEDS: MIRTAZAPINE 15 MG TABLET PO SCH (20:06)
[2018-08-12] MEDS: QUEtiapine 50 MG TABLET. PO SCH (20:06)
[2018-08-12] MEDS: ATORVASTATIN CALCIUM 10 MG TABLET. PO SCH (20:06)
--- NOTE | 2018-08-12 21:03 | PDOC ---
Exam Note: Alfonso Note: Please also refer to the separate dictated note~for this date of service dictated separately.~Patient seen individually. Discussed the patient with Nursing staff reviewed the chart.~Reviewed interim history and current functioning. Reviewed vital signs,~Labs/ Radiology~and current medications noted below. Continue current treatment with the changes noted in the dictated addendum note Assessment: Vital Signs: Vital Signs Date Time Temp Pulse Resp B/P (MAP) Pulse Ox O2 Delivery O2 Flow Rate FiO2 08/12/18 16:34 97.7 60 16 138/78 (98) 99 08/12/18 06:21 Room Air I&O Intake and Output 08/12/18 07:00 Intake Total 840 ml Balance 840 ml Intake Oral 840 ml Current Medications: Meds: Current Medications Carbidopa/Levodopa (Sinemet 25/100) 2 tab [id number] PO ; Start 08/03/18 at 18:00 ; Stop 08/03/18 at 18:00; Status DC Gabapentin (Neurontin) 100 mg 1X ONCE PO Last administered on 08/03/18at 15:42 ; Start 08/03/18 at 15:30; Stop 08/03/18 at 15:53; Status DC Quetiapine Fumarate (SEROquel) 50 mg PRN TID PO ; Start 08/03/18 at 15:30; Stop 08/03/18 at 16:49; Status DC Acetaminophen (Tylenol) 650 mg PRN Q4HRS PRN PO PAIN / TEMP; Start 08/03/18 at 16:30 Gabapentin (Neurontin) 100 mg TID PO ; Start 08/03/18 at 21:00; Stop 08/03/18 at 21:00; Status DC Aspirin (Aspirin Enteric Coated) 81 mg HS PO Last administered on 08/12/18at 20: 05; Start 08/03/18 at 21:00 Atorvastatin Calcium (Lipitor) 5 mg QHS PO Last administered on 08/12/18at 20:06 ; Start 08/03/18 at 21:00 Calcium/Vitamin D (Oscal D 500mg/ 200uts) 1 tab BIDWMEALS PO Last administered on 08/12/18at 18:34; Start 08/03/18 at 17:00 Multivitamins/ Calcium (Thera-M Plus) 1 tab DAILY PO Last administered on at 07:50; Start 08/04/18 at 09:00 Polyethylene Glycol (miraLAX) 17 gm DAILY PO Last administered on 08/12/18at 07: 50; Start 08/04/18 at 09:00 Pramipexole Dihydrochloride (miraPEX) 0.125 mg [id number] PO Last administered on at 19:38; Start 08/04/18 at 09:00; Stop 08/07/18 at 23:00; Status DC Pramipexole Dihydrochloride (miraPEX) 0.25 mg QHS PO Last administered on at 19:40; Start 08/03/18 at 21:00; Stop 08/03/18 at 21:01; Status DC Quetiapine Fumarate (SEROquel) 50 mg QHS PO Last administered on 08/06/18at 21: 06; Start 08/03/18 at 21:00; Stop 08/07/18 at 18:42; Status DC Carbidopa/Levodopa (Sinemet 25/100) 2 tab TID PO Last administered on at 20:05; Start 08/03/18 at 21:00 Multi-Ingredient Ointment (Analgesic [place]) 1 kristina PRN QID PRN TP MUSCLE PAIN; Start 08/03/18 at 18:30 Al Hydroxide/Mg Hydroxide (Mylanta Plus Xs) 15 ml PRN AFTMEALHC PRN PO DYSPEPSIA; Start 08/03/18 at 18:30 Magnesium Hydroxide (Milk Of Magnesia) 2,400 mg PRN QHS PRN PO CONSTIPATION; Start 08/03/18 at 18:30 Memantine (Namenda) 5 mg DAILY PO Last administered on 08/07/18at 08:37; Start 08/05/18 at 10:00; Stop 08/07/18 at 18:06; Status DC Rivastigmine (Exelon) 1 patch DAILY TD Last administered on 08/07/18at 08:41; Start 08/05/18 at 10:00; Stop 08/07/18 at 19:03; Status DC Mirtazapine (Remeron) 7.5 mg QHS PO Last administered on 08/09/18at 20:18; Start 08/05/18 at 21:00; Stop 08/10/18 at 17:15; Status DC Olanzapine (ZyPREXA ZYDIS) 1.25 mg PRN Q2HR PRN PO ANXIETY / AGITATION Last administered on 08/12/18at 11:05; Start 08/05/18 at 09:30 Memantine (Namenda) 5 mg [id number] PO Last administered on 08/12/18at 18:34; Start 08/08/18 at 09:00 Quetiapine Fumarate (SEROquel) 75 mg QHS PO Last administered on 08/12/18at 20: 06; Start 08/07/18 at 21:00 Rivastigmine (Exelon) 1 patch DAILY TD Last administered on 08/12/18 07:50; Start 08/08/18 at 09:00 Mirtazapine (Remeron) 15 mg QHS PO Last administered on 08/12/18at 20:06; Start 08/10/18 at 21:00 Sertraline HCl (Zoloft) 25 mg DAILY PO Last administered on 08/12/18at 07:51; Start 08/12/18 at 09:00 Active Scripts Active Reported Seroquel (Quetiapine Fumarate) 50 Mg Tablet 50 Mg PO HS Multi-Day Plus Minerals Tablet (Multivitamin-Min/Iron/FA/Vit K) 1 Each Tablet 1 Each PO DAILY Mirapex (Pramipexole Di-Hcl) 0.25 Mg Tablet 0.25 Mg PO HS 1 Days Mirapex (Pramipexole Di-Hcl) 0.25 Mg Tablet 0.125 Mg PO TID 4 Days Miralax (Polyethylene Glycol 3350) 17 Gm Powd.pack 17 Gm PO DAILY Gabapentin 100 Mg Capsule 100 Mg PO TID Sinemet 25-100 Mg Tablet (Carbidopa/Levodopa) 1 Each Tablet 2 Tab PO TID Calcium 500 + Vit D 400 Tablet (Calcium Carbonate/Vitamin D3) 1 Each Tablet 1 Each PO BID Atorvastatin Calcium 10 Mg Tablet 5 Mg PO QHS Aspirin Ec (Aspirin) 81 Mg Tablet.dr 81 Mg PO HS Tylenol (Acetaminophen) 325 Mg Tablet 650 Mg PO PRN Q4HRS PRN I have reviewed the current psychotropics carefully including drug interactions. Risk benefit ratio favors no change other than as noted in my dictated progress note. Diagnosis: Problems: (1) Medical clearance for psychiatric admission (2) Anxiety disorder (3) Impulse control disorder (4) Major depressive disorder, recurrent episode (5) Mild cognitive impairment (6) Parkinson's disease ASIM WISE MD Aug 12, 2018 21:03
[2018-08-13 06:01] VITALS: BP 120/69
[2018-08-13] MEDS: CALCIUM CARB/VIT D3 500/200 TABLET PO SCH ×2 (09:24→15:04)
[2018-08-13] MEDS: MEMANTINE 5 MG TABLET. PO SCH ×2 (09:24→15:04)
[2018-08-13] MEDS: CARBIDOPA/LEVODOPA 25/100MG TABLET PO SCH ×3 (09:24→21:05)
[2018-08-13] MEDS: POLYETHYLENE GLYCOL 3350 17 GM PACKET. PO SCH (09:24)
[2018-08-13] MEDS: SERTRALINE 25 MG TABLET. PO SCH (09:25)
[2018-08-13] MEDS: RIVASTIGMINE 9.5MG PATCH. TD SCH (09:25)
[2018-08-13] MEDS: MULTIVITAMIN with MINERAL TABLET. PO SCH (09:25)
[2018-08-13 16:10] VITALS: BP 135/78
[2018-08-13] MEDS: QUEtiapine 50 MG TABLET. PO SCH (21:05)
[2018-08-13] MEDS: ATORVASTATIN CALCIUM 10 MG TABLET. PO SCH (21:05)
[2018-08-13] MEDS: ASPIRIN ENTERIC COATED 81 MG TABLET.DR. PO SCH (21:05)
[2018-08-13] MEDS: MIRTAZAPINE 15 MG TABLET PO SCH (21:05)
--- NOTE | 2018-08-13 22:04 | PN ---
DATE: 08/11/2018 This is a late entry for 08/11/2018 covers elements not covered in my initial note. SUBJECTIVE: I met with the patient in the evening. Overall, the patient slept 7-1/4 hours previous night. Per nursing report, he has been obsessed regarding his stool. At around 03:00 p.m., he complained of feeling lightheaded. REVIEW OF SYSTEMS: Positive for impaired ambulation, in wheelchair secondary to his Parkinson's. No CV, , pulmonary, eye system symptoms on review. MENTAL STATUS EXAM: Reasonably oriented. Speech is coherent. He is much more pleasant, verbal, interactive, smiling at times, which is an improvement for him. No active suicidal or homicidal ideation. He appears less delusional, less suspicious. LABORATORY DATA: Reviewed. IMPRESSION: Major depressive disorder with anxiety disorder, unspecified; major neurocognitive disorder, early Lewy body with delusion, depression, in partial remission. Rest unchanged. PLAN: Start Zoloft 25 mg p.o. daily for mood and anxiety symptoms. Maintain Namenda, Exelon, Seroquel, Remeron at current dosage. MAN Taras WISE MD DR: LISA/ferny JOB#: [id number] / [id number]
--- NOTE | 2018-08-13 22:09 | PN ---
DATE: 08/12/2018 This is a late entry for 08/12/2018 covers elements not covered in my initial note. SUBJECTIVE: I met with the patient in the evening. The patient has overall had a good day per nursing report. He slept 7-3/4 hours previous night. REVIEW OF SYSTEMS: Ambulation impaired, in wheelchair. No CV, , pulmonary, eye, ENT system symptoms on review. MENTAL STATUS EXAM: Reasonably oriented. Speech has some latency, coherent. Abstraction fair, computation impaired, language function intact. Mood and affect is improved. He is less anxious, pleasant, appreciative of his stay here. Less obsessed. LABORATORY DATA: Reviewed. IMPRESSION: Unchanged from initial note. PLAN: No change from initial note. MAN Taras WISE MD DR: LISA/ferny JOB#: [id number] / [id number]
--- NOTE | 2018-08-13 22:46 | PDOC ---
Exam Note: Alfonso Note: Please also refer to the separate dictated note~for this date of service dictated separately.~Patient seen individually. Discussed the patient with Nursing staff reviewed the chart.~Reviewed interim history and current functioning. Reviewed vital signs,~Labs/ Radiology~and current medications noted below. Continue current treatment with the changes noted in the dictated addendum note Assessment: Vital Signs: Vital Signs Date Time Temp Pulse Resp B/P (MAP) Pulse Ox O2 Delivery O2 Flow Rate FiO2 08/13/18 16:10 98.2 74 18 135/78 (97) 94 Room Air I&O Intake and Output 08/13/18 07:00 Intake Total 1800 ml Balance 1800 ml Intake Oral 1800 ml # Bowel Movements 1 Current Medications: Meds: Current Medications Carbidopa/Levodopa (Sinemet 25/100) 2 tab [id number] PO ; Start 08/03/18 at 18:00 ; Stop 08/03/18 at 18:00; Status DC Gabapentin (Neurontin) 100 mg 1X ONCE PO Last administered on 08/03/18at 15:42 ; Start 08/03/18 at 15:30; Stop 08/03/18 at 15:53; Status DC Quetiapine Fumarate (SEROquel) 50 mg PRN TID PO ; Start 08/03/18 at 15:30; Stop 08/03/18 at 16:49; Status DC Acetaminophen (Tylenol) 650 mg PRN Q4HRS PRN PO PAIN / TEMP; Start 08/03/18 at 16:30 Gabapentin (Neurontin) 100 mg TID PO ; Start 08/03/18 at 21:00; Stop 08/03/18 at 21:00; Status DC Aspirin (Aspirin Enteric Coated) 81 mg HS PO Last administered on 08/13/18at 21: 05; Start 08/03/18 at 21:00 Atorvastatin Calcium (Lipitor) 5 mg QHS PO Last administered on 08/13/18at 21:05 ; Start 08/03/18 at 21:00 Calcium/Vitamin D (Oscal D 500mg/ 200uts) 1 tab BIDWMEALS PO Last administered on 08/13/18at 15:04; Start 08/03/18 at 17:00 Multivitamins/ Calcium (Thera-M Plus) 1 tab DAILY PO Last administered on at 09:25; Start 08/04/18 at 09:00 Polyethylene Glycol (miraLAX) 17 gm DAILY PO Last administered on 08/13/18at 09: 24; Start 08/04/18 at 09:00 Pramipexole Dihydrochloride (miraPEX) 0.125 mg [id number] PO Last administered on at 19:38; Start 08/04/18 at 09:00; Stop 08/07/18 at 23:00; Status DC Pramipexole Dihydrochloride (miraPEX) 0.25 mg QHS PO Last administered on at 19:40; Start 08/03/18 at 21:00; Stop 08/03/18 at 21:01; Status DC Quetiapine Fumarate (SEROquel) 50 mg QHS PO Last administered on 08/06/18at 21: 06; Start 08/03/18 at 21:00; Stop 08/07/18 at 18:42; Status DC Carbidopa/Levodopa (Sinemet 25/100) 2 tab TID PO Last administered on at 21:05; Start 08/03/18 at 21:00 Multi-Ingredient Ointment (Analgesic [place]) 1 kristina PRN QID PRN TP MUSCLE PAIN; Start 08/03/18 at 18:30 Al Hydroxide/Mg Hydroxide (Mylanta Plus Xs) 15 ml PRN AFTMEALHC PRN PO DYSPEPSIA; Start 08/03/18 at 18:30 Magnesium Hydroxide (Milk Of Magnesia) 2,400 mg PRN QHS PRN PO CONSTIPATION; Start 08/03/18 at 18:30 Memantine (Namenda) 5 mg DAILY PO Last administered on 08/07/18at 08:37; Start 08/05/18 at 10:00; Stop 08/07/18 at 18:06; Status DC Rivastigmine (Exelon) 1 patch DAILY TD Last administered on 08/07/18at 08:41; Start 08/05/18 at 10:00; Stop 08/07/18 at 19:03; Status DC Mirtazapine (Remeron) 7.5 mg QHS PO Last administered on 08/09/18at 20:18; Start 08/05/18 at 21:00; Stop 08/10/18 at 17:15; Status DC Olanzapine (ZyPREXA ZYDIS) 1.25 mg PRN Q2HR PRN PO ANXIETY / AGITATION Last administered on 08/12/18at 11:05; Start 08/05/18 at 09:30 Memantine (Namenda) 5 mg [id number] PO Last administered on 08/13/18at 15:04; Start 08/08/18 at 09:00 Quetiapine Fumarate (SEROquel) 75 mg QHS PO Last administered on 08/13/18at 21: 05; Start 08/07/18 at 21:00 Rivastigmine (Exelon) 1 patch DAILY TD Last administered on 08/13/18 09:25; Start 08/08/18 at 09:00 Mirtazapine (Remeron) 15 mg QHS PO Last administered on 08/13/18at 21:05; Start 08/10/18 at 21:00 Sertraline HCl (Zoloft) 25 mg DAILY PO Last administered on 08/13/18at 09:25; Start 08/12/18 at 09:00 Active Scripts Active Reported Seroquel (Quetiapine Fumarate) 50 Mg Tablet 50 Mg PO HS Multi-Day Plus Minerals Tablet (Multivitamin-Min/Iron/FA/Vit K) 1 Each Tablet 1 Each PO DAILY Mirapex (Pramipexole Di-Hcl) 0.25 Mg Tablet 0.25 Mg PO HS 1 Days Mirapex (Pramipexole Di-Hcl) 0.25 Mg Tablet 0.125 Mg PO TID 4 Days Miralax (Polyethylene Glycol 3350) 17 Gm Powd.pack 17 Gm PO DAILY Gabapentin 100 Mg Capsule 100 Mg PO TID Sinemet 25-100 Mg Tablet (Carbidopa/Levodopa) 1 Each Tablet 2 Tab PO TID Calcium 500 + Vit D 400 Tablet (Calcium Carbonate/Vitamin D3) 1 Each Tablet 1 Each PO BID Atorvastatin Calcium 10 Mg Tablet 5 Mg PO QHS Aspirin Ec (Aspirin) 81 Mg Tablet.dr 81 Mg PO HS Tylenol (Acetaminophen) 325 Mg Tablet 650 Mg PO PRN Q4HRS PRN I have reviewed the current psychotropics carefully including drug interactions. Risk benefit ratio favors no change other than as noted in my dictated progress note. Diagnosis: Problems: (1) Medical clearance for psychiatric admission (2) Anxiety disorder (3) Impulse control disorder (4) Major depressive disorder, recurrent episode (5) Mild cognitive impairment (6) Parkinson's disease ASIM WISE MD Aug 13, 2018 22:46
[2018-08-14 05:44] VITALS: BP 123/73
[2018-08-14] MEDS: SERTRALINE 25 MG TABLET. PO SCH (10:04)
[2018-08-14] MEDS: RIVASTIGMINE 9.5MG PATCH. TD SCH (10:04)
[2018-08-14] MEDS: CALCIUM CARB/VIT D3 500/200 TABLET PO SCH ×2 (10:04→17:28)
[2018-08-14] MEDS: CARBIDOPA/LEVODOPA 25/100MG TABLET PO SCH ×3 (10:04→19:36)
[2018-08-14] MEDS: MEMANTINE 5 MG TABLET. PO SCH ×2 (10:04→17:28)
[2018-08-14] MEDS: POLYETHYLENE GLYCOL 3350 17 GM PACKET. PO SCH (10:05)
[2018-08-14] MEDS: MULTIVITAMIN with MINERAL TABLET. PO SCH (10:05)
[2018-08-14 15:44] VITALS: BP 133/72
[2018-08-14] MEDS: ATORVASTATIN CALCIUM 10 MG TABLET. PO SCH (19:36)
[2018-08-14] MEDS: ASPIRIN ENTERIC COATED 81 MG TABLET.DR. PO SCH (19:36)
[2018-08-14] MEDS: MIRTAZAPINE 15 MG TABLET PO SCH (19:36)
[2018-08-14] MEDS: QUEtiapine 100 MG TABLET. PO SCH (19:39)
--- NOTE | 2018-08-14 20:58 | PDOC ---
Exam Note: Alfonso Note: Please also refer to the separate dictated note~for this date of service dictated separately.~Patient seen individually. Discussed the patient with Nursing staff reviewed the chart.~Reviewed interim history and current functioning. Reviewed vital signs,~Labs/ Radiology~and current medications noted below. Continue current treatment with the changes noted in the dictated addendum note Assessment: Vital Signs: Vital Signs Date Time Temp Pulse Resp B/P (MAP) Pulse Ox O2 Delivery O2 Flow Rate FiO2 08/14/18 15:44 98.3 75 18 133/72 (92) 95 Room Air I&O Intake and Output 08/14/18 07:00 Intake Total 1080 ml Balance 1080 ml Intake Oral 1080 ml Current Medications: Meds: Current Medications Carbidopa/Levodopa (Sinemet 25/100) 2 tab [id number] PO ; Start 08/03/18 at 18:00 ; Stop 08/03/18 at 18:00; Status DC Gabapentin (Neurontin) 100 mg 1X ONCE PO Last administered on 08/03/18at 15:42 ; Start 08/03/18 at 15:30; Stop 08/03/18 at 15:53; Status DC Quetiapine Fumarate (SEROquel) 50 mg PRN TID PO ; Start 08/03/18 at 15:30; Stop 08/03/18 at 16:49; Status DC Acetaminophen (Tylenol) 650 mg PRN Q4HRS PRN PO PAIN / TEMP; Start 08/03/18 at 16:30 Gabapentin (Neurontin) 100 mg TID PO ; Start 08/03/18 at 21:00; Stop 08/03/18 at 21:00; Status DC Aspirin (Aspirin Enteric Coated) 81 mg HS PO Last administered on 08/14/18at 19: 36; Start 08/03/18 at 21:00 Atorvastatin Calcium (Lipitor) 5 mg QHS PO Last administered on 08/14/18at 19:36 ; Start 08/03/18 at 21:00 Calcium/Vitamin D (Oscal D 500mg/ 200uts) 1 tab BIDWMEALS PO Last administered on 08/14/18at 17:28; Start 08/03/18 at 17:00 Multivitamins/ Calcium (Thera-M Plus) 1 tab DAILY PO Last administered on at 10:05; Start 08/04/18 at 09:00 Polyethylene Glycol (miraLAX) 17 gm DAILY PO Last administered on 08/14/18at 10: 05; Start 08/04/18 at 09:00 Pramipexole Dihydrochloride (miraPEX) 0.125 mg [id number] PO Last administered on at 19:38; Start 08/04/18 at 09:00; Stop 08/07/18 at 23:00; Status DC Pramipexole Dihydrochloride (miraPEX) 0.25 mg QHS PO Last administered on at 19:40; Start 08/03/18 at 21:00; Stop 08/03/18 at 21:01; Status DC Quetiapine Fumarate (SEROquel) 50 mg QHS PO Last administered on 08/06/18at 21: 06; Start 08/03/18 at 21:00; Stop 08/07/18 at 18:42; Status DC Carbidopa/Levodopa (Sinemet 25/100) 2 tab TID PO Last administered on at 19:36; Start 08/03/18 at 21:00 Multi-Ingredient Ointment (Analgesic [place]) 1 kristina PRN QID PRN TP MUSCLE PAIN; Start 08/03/18 at 18:30 Al Hydroxide/Mg Hydroxide (Mylanta Plus Xs) 15 ml PRN AFTMEALHC PRN PO DYSPEPSIA; Start 08/03/18 at 18:30 Magnesium Hydroxide (Milk Of Magnesia) 2,400 mg PRN QHS PRN PO CONSTIPATION; Start 08/03/18 at 18:30 Memantine (Namenda) 5 mg DAILY PO Last administered on 08/07/18at 08:37; Start 08/05/18 at 10:00; Stop 08/07/18 at 18:06; Status DC Rivastigmine (Exelon) 1 patch DAILY TD Last administered on 08/07/18at 08:41; Start 08/05/18 at 10:00; Stop 08/07/18 at 19:03; Status DC Mirtazapine (Remeron) 7.5 mg QHS PO Last administered on 08/09/18at 20:18; Start 08/05/18 at 21:00; Stop 08/10/18 at 17:15; Status DC Olanzapine (ZyPREXA ZYDIS) 1.25 mg PRN Q2HR PRN PO ANXIETY / AGITATION Last administered on 08/12/18 11:05; Start 08/05/18 at 09:30 Memantine (Namenda) 5 mg [id number] PO Last administered on 08/14/18 17:28; Start 08/08/18 at 09:00 Quetiapine Fumarate (SEROquel) 75 mg QHS PO Last administered on 08/13/18 21: 05; Start 08/07/18 at 21:00; Stop 08/14/18 at 19:15; Status DC Rivastigmine (Exelon) 1 patch DAILY TD Last administered on 08/14/18 10:04; Start 08/08/18 at 09:00 Mirtazapine (Remeron) 15 mg QHS PO Last administered on 08/14/18 19:36; Start 08/10/18 at 21:00 Sertraline HCl (Zoloft) 25 mg DAILY PO Last administered on 08/14/18 10:04; Start 08/12/18 at 09:00 Quetiapine Fumarate (SEROquel) 100 mg QHS PO Last administered on 08/14/18 19: 39; Start 08/14/18 at 21:00 Active Scripts Active Reported Seroquel (Quetiapine Fumarate) 50 Mg Tablet 50 Mg PO HS Multi-Day Plus Minerals Tablet (Multivitamin-Min/Iron/FA/Vit K) 1 Each Tablet 1 Each PO DAILY Mirapex (Pramipexole Di-Hcl) 0.25 Mg Tablet 0.25 Mg PO HS 1 Days Mirapex (Pramipexole Di-Hcl) 0.25 Mg Tablet 0.125 Mg PO TID 4 Days Miralax (Polyethylene Glycol 3350) 17 Gm Powd.pack 17 Gm PO DAILY Gabapentin 100 Mg Capsule 100 Mg PO TID Sinemet 25-100 Mg Tablet (Carbidopa/Levodopa) 1 Each Tablet 2 Tab PO TID Calcium 500 + Vit D 400 Tablet (Calcium Carbonate/Vitamin D3) 1 Each Tablet 1 Each PO BID Atorvastatin Calcium 10 Mg Tablet 5 Mg PO QHS Aspirin Ec (Aspirin) 81 Mg Tablet.dr 81 Mg PO HS Tylenol (Acetaminophen) 325 Mg Tablet 650 Mg PO PRN Q4HRS PRN I have reviewed the current psychotropics carefully including drug interactions. Risk benefit ratio favors no change other than as noted in my dictated progress note. Diagnosis: Problems: (1) Medical clearance for psychiatric admission (2) Anxiety disorder (3) Impulse control disorder (4) Major depressive disorder, recurrent episode (5) Mild cognitive impairment (6) Parkinson's disease ASIM WISE MD Aug 14, 2018 20:57
--- NOTE | 2018-08-14 22:53 | PN ---
DATE: 08/13/2018 This is a late entry for 08/13/2018 covers elements not covered in my initial note. SUBJECTIVE: I met with the patient in the evening. The patient slept 6-3/4 hours previous night, has been more pleasant, cooperative, smiling, less depressed. Compliant with medications. REVIEW OF SYSTEMS: Ambulation with walker secondary to Parkinson's. No CV, , pulmonary, eye system symptoms on review. MENTAL STATUS EXAM: Reasonably oriented. Speech is coherent, has some latency. Abstraction fair, computation impaired, language function intact. Mood and affect showing improvement. LABORATORY DATA: Reviewed. IMPRESSION: Unchanged from initial note. PLAN: No change from initial note. Maintain Zoloft, Remeron, Exelon patch, Namenda, Seroquel at current dosage. MAN Taras WISE MD DR: LISA/ferny JOB#: [id number] / [id number]
[2018-08-15 05:37] VITALS: BP 151/91
[2018-08-15] MEDS: RIVASTIGMINE 9.5MG PATCH. TD SCH (08:07)
[2018-08-15] MEDS: POLYETHYLENE GLYCOL 3350 17 GM PACKET. PO SCH (08:07)
[2018-08-15] MEDS: MEMANTINE 5 MG TABLET. PO SCH ×2 (08:07→17:02)
[2018-08-15] MEDS: MULTIVITAMIN with MINERAL TABLET. PO SCH (08:07)
[2018-08-15] MEDS: SERTRALINE 25 MG TABLET. PO SCH (08:07)
[2018-08-15] MEDS: CARBIDOPA/LEVODOPA 25/100MG TABLET PO SCH ×3 (08:07→19:23)
[2018-08-15] MEDS: CALCIUM CARB/VIT D3 500/200 TABLET PO SCH ×2 (08:07→17:02)
[2018-08-15 16:22] VITALS: BP 131/77
[2018-08-15] MEDS: MIRTAZAPINE 15 MG TABLET PO SCH (19:23)
[2018-08-15] MEDS: ATORVASTATIN CALCIUM 10 MG TABLET. PO SCH (19:23)
[2018-08-15] MEDS: ASPIRIN ENTERIC COATED 81 MG TABLET.DR. PO SCH (19:23)
[2018-08-15] MEDS: QUEtiapine 100 MG TABLET. PO SCH (19:23)
--- NOTE | 2018-08-15 20:46 | PDOC ---
Exam Note: Alfonso Note: Please also refer to the separate dictated note~for this date of service dictated separately.~Patient seen individually. Discussed the patient with Nursing staff reviewed the chart.~Reviewed interim history and current functioning. Reviewed vital signs,~Labs/ Radiology~and current medications noted below. Continue current treatment with the changes noted in the dictated addendum note Assessment: Vital Signs: Vital Signs Date Time Temp Pulse Resp B/P (MAP) Pulse Ox O2 Delivery O2 Flow Rate FiO2 08/15/18 16:22 98.1 70 20 131/77 (95) 96 08/14/18 15:44 Room Air I&O Intake and Output 08/15/18 07:00 Intake Total 1320 ml Balance 1320 ml Intake Oral 1320 ml Current Medications: Meds: Current Medications Carbidopa/Levodopa (Sinemet 25/100) 2 tab [id number] PO ; Start 08/03/18 at 18:00 ; Stop 08/03/18 at 18:00; Status DC Gabapentin (Neurontin) 100 mg 1X ONCE PO Last administered on 08/03/18at 15:42 ; Start 08/03/18 at 15:30; Stop 08/03/18 at 15:53; Status DC Quetiapine Fumarate (SEROquel) 50 mg PRN TID PO ; Start 08/03/18 at 15:30; Stop 08/03/18 at 16:49; Status DC Acetaminophen (Tylenol) 650 mg PRN Q4HRS PRN PO PAIN / TEMP; Start 08/03/18 at 16:30 Gabapentin (Neurontin) 100 mg TID PO ; Start 08/03/18 at 21:00; Stop 08/03/18 at 21:00; Status DC Aspirin (Aspirin Enteric Coated) 81 mg HS PO Last administered on 08/15/18at 19: 23; Start 08/03/18 at 21:00 Atorvastatin Calcium (Lipitor) 5 mg QHS PO Last administered on 08/15/18at 19:23 ; Start 08/03/18 at 21:00 Calcium/Vitamin D (Oscal D 500mg/ 200uts) 1 tab BIDWMEALS PO Last administered on 08/15/18at 17:02; Start 08/03/18 at 17:00 Multivitamins/ Calcium (Thera-M Plus) 1 tab DAILY PO Last administered on at 08:07; Start 08/04/18 at 09:00 Polyethylene Glycol (miraLAX) 17 gm DAILY PO Last administered on 08/15/18at 08: 07; Start 08/04/18 at 09:00 Pramipexole Dihydrochloride (miraPEX) 0.125 mg [id number] PO Last administered on at 19:38; Start 08/04/18 at 09:00; Stop 08/07/18 at 23:00; Status DC Pramipexole Dihydrochloride (miraPEX) 0.25 mg QHS PO Last administered on at 19:40; Start 08/03/18 at 21:00; Stop 08/03/18 at 21:01; Status DC Quetiapine Fumarate (SEROquel) 50 mg QHS PO Last administered on 08/06/18at 21: 06; Start 08/03/18 at 21:00; Stop 08/07/18 at 18:42; Status DC Carbidopa/Levodopa (Sinemet 25/100) 2 tab TID PO Last administered on at 19:23; Start 08/03/18 at 21:00 Multi-Ingredient Ointment (Analgesic [place]) 1 kristina PRN QID PRN TP MUSCLE PAIN; Start 08/03/18 at 18:30 Al Hydroxide/Mg Hydroxide (Mylanta Plus Xs) 15 ml PRN AFTMEALHC PRN PO DYSPEPSIA; Start 08/03/18 at 18:30 Magnesium Hydroxide (Milk Of Magnesia) 2,400 mg PRN QHS PRN PO CONSTIPATION; Start 08/03/18 at 18:30 Memantine (Namenda) 5 mg DAILY PO Last administered on 08/07/18at 08:37; Start 08/05/18 at 10:00; Stop 08/07/18 at 18:06; Status DC Rivastigmine (Exelon) 1 patch DAILY TD Last administered on 08/07/18at 08:41; Start 08/05/18 at 10:00; Stop 08/07/18 at 19:03; Status DC Mirtazapine (Remeron) 7.5 mg QHS PO Last administered on 08/09/18at 20:18; Start 08/05/18 at 21:00; Stop 08/10/18 at 17:15; Status DC Olanzapine (ZyPREXA ZYDIS) 1.25 mg PRN Q2HR PRN PO ANXIETY / AGITATION Last administered on 08/12/18at 11:05; Start 08/05/18 at 09:30 Memantine (Namenda) 5 mg [id number] PO Last administered on 08/15/18 17:02; Start 08/08/18 at 09:00 Quetiapine Fumarate (SEROquel) 75 mg QHS PO Last administered on 08/13/18at 21: 05; Start 08/07/18 at 21:00; Stop 08/14/18 at 19:15; Status DC Rivastigmine (Exelon) 1 patch DAILY TD Last administered on 08/15/18 08:07; Start 08/08/18 at 09:00 Mirtazapine (Remeron) 15 mg QHS PO Last administered on 08/15/18 19:23; Start 08/10/18 at 21:00 Sertraline HCl (Zoloft) 25 mg DAILY PO Last administered on 08/15/18 08:07; Start 08/12/18 at 09:00 Quetiapine Fumarate (SEROquel) 100 mg QHS PO Last administered on 08/15/18 19: 23; Start 08/14/18 at 21:00 Active Scripts Active Reported Seroquel (Quetiapine Fumarate) 50 Mg Tablet 50 Mg PO HS Multi-Day Plus Minerals Tablet (Multivitamin-Min/Iron/FA/Vit K) 1 Each Tablet 1 Each PO DAILY Mirapex (Pramipexole Di-Hcl) 0.25 Mg Tablet 0.25 Mg PO HS 1 Days Mirapex (Pramipexole Di-Hcl) 0.25 Mg Tablet 0.125 Mg PO TID 4 Days Miralax (Polyethylene Glycol 3350) 17 Gm Powd.pack 17 Gm PO DAILY Gabapentin 100 Mg Capsule 100 Mg PO TID Sinemet 25-100 Mg Tablet (Carbidopa/Levodopa) 1 Each Tablet 2 Tab PO TID Calcium 500 + Vit D 400 Tablet (Calcium Carbonate/Vitamin D3) 1 Each Tablet 1 Each PO BID Atorvastatin Calcium 10 Mg Tablet 5 Mg PO QHS Aspirin Ec (Aspirin) 81 Mg Tablet.dr 81 Mg PO HS Tylenol (Acetaminophen) 325 Mg Tablet 650 Mg PO PRN Q4HRS PRN I have reviewed the current psychotropics carefully including drug interactions. Risk benefit ratio favors no change other than as noted in my dictated progress note. Diagnosis: Problems: (1) Medical clearance for psychiatric admission (2) Anxiety disorder (3) Impulse control disorder (4) Major depressive disorder, recurrent episode (5) Mild cognitive impairment (6) Parkinson's disease ASIM WISE MD Aug 15, 2018 20:46
--- NOTE | 2018-08-15 23:21 | PN ---
DATE: 08/14/2018 This is a late entry for 08/14/2018 covers elements not covered in my initial note. SUBJECTIVE: I met with the patient in the evening. The patient slept 5-1/2 hours previous night. He has been somewhat paranoid, suspicious of people around him, trying to steal from him or kill him. Processed this with him, but by the time I met with him in the evening, he denied he was feeling this way. In the morning, he was resistive to his medications, took them later, slept reasonably well. PT is evaluating the patient. REVIEW OF SYSTEMS: Ambulation impaired with walker. No CV, , pulmonary, eye system symptoms on review. Does have symptoms of his Parkinson's. MENTAL STATUS EXAM: The patient is reasonably oriented. Speech coherent, abstraction fair, computation able to do two step serial sevens, very verbal, animated as I met with him, pleasant, interactive. No active hallucinations, suicidal or homicidal ideation. LABORATORY DATA: Reviewed. IMPRESSION: Unchanged from initial note. PLAN: Increase bedtime Seroquel from 50 mg to 62.5 mg at bedtime. Rest unchanged from initial note. MAN Taras WISE MD DR: LISA/ferny JOB#: [id number] / [id number]
[2018-08-16 05:22] VITALS: BP 147/81
[2018-08-16] MEDS: SERTRALINE 25 MG TABLET. PO SCH (08:12)
[2018-08-16] MEDS: CARBIDOPA/LEVODOPA 25/100MG TABLET PO SCH ×3 (08:12→20:02)
[2018-08-16] MEDS: MULTIVITAMIN with MINERAL TABLET. PO SCH (08:12)
[2018-08-16] MEDS: CALCIUM CARB/VIT D3 500/200 TABLET PO SCH ×2 (08:12→17:54)
[2018-08-16] MEDS: MEMANTINE 5 MG TABLET. PO SCH ×2 (08:12→17:54)
[2018-08-16] MEDS: RIVASTIGMINE 9.5MG PATCH. TD SCH (08:13)
[2018-08-16] MEDS: POLYETHYLENE GLYCOL 3350 17 GM PACKET. PO SCH (08:13)
[2018-08-16 15:53] VITALS: BP 157/88
[2018-08-16] MEDS: QUEtiapine 100 MG TABLET. PO SCH (20:02)
[2018-08-16] MEDS: ASPIRIN ENTERIC COATED 81 MG TABLET.DR. PO SCH (20:02)
[2018-08-16] MEDS: ATORVASTATIN CALCIUM 10 MG TABLET. PO SCH (20:03)
[2018-08-16] MEDS: MIRTAZAPINE 15 MG TABLET PO SCH (20:03)
--- NOTE | 2018-08-16 20:28 | PDOC ---
Exam Note: Alfonso Note: Please also refer to the separate dictated note~for this date of service dictated separately.~Patient seen individually. Discussed the patient with Nursing staff reviewed the chart.~Reviewed interim history and current functioning. Reviewed vital signs,~Labs/ Radiology~and current medications noted below. Continue current treatment with the changes noted in the dictated addendum note Assessment: Vital Signs: Vital Signs Date Time Temp Pulse Resp B/P (MAP) Pulse Ox O2 Delivery O2 Flow Rate FiO2 08/16/18 15:53 98.5 82 18 157/88 (111) 95 Room Air I&O Intake and Output 08/16/18 07:00 Intake Total 980 ml Balance 980 ml Intake Oral 980 ml Current Medications: Meds: Current Medications Carbidopa/Levodopa (Sinemet 25/100) 2 tab [id number] PO ; Start 08/03/18 at 18:00 ; Stop 08/03/18 at 18:00; Status DC Gabapentin (Neurontin) 100 mg 1X ONCE PO Last administered on 08/03/18at 15:42 ; Start 08/03/18 at 15:30; Stop 08/03/18 at 15:53; Status DC Quetiapine Fumarate (SEROquel) 50 mg PRN TID PO ; Start 08/03/18 at 15:30; Stop 08/03/18 at 16:49; Status DC Acetaminophen (Tylenol) 650 mg PRN Q4HRS PRN PO PAIN / TEMP Last administered on 08/16/18at 20:10; Start 08/03/18 at 16:30 Gabapentin (Neurontin) 100 mg TID PO ; Start 08/03/18 at 21:00; Stop 08/03/18 at 21:00; Status DC Aspirin (Aspirin Enteric Coated) 81 mg HS PO Last administered on 08/16/18at 20: 02; Start 08/03/18 at 21:00 Atorvastatin Calcium (Lipitor) 5 mg QHS PO Last administered on 08/16/18at 20:03 ; Start 08/03/18 at 21:00 Calcium/Vitamin D (Oscal D 500mg/ 200uts) 1 tab BIDWMEALS PO Last administered on 08/16/18at 17:54; Start 08/03/18 at 17:00 Multivitamins/ Calcium (Thera-M Plus) 1 tab DAILY PO Last administered on at 08:12; Start 08/04/18 at 09:00 Polyethylene Glycol (miraLAX) 17 gm DAILY PO Last administered on 08/16/18at 08: 13; Start 08/04/18 at 09:00 Pramipexole Dihydrochloride (miraPEX) 0.125 mg [id number] PO Last administered on at 19:38; Start 08/04/18 at 09:00; Stop 08/07/18 at 23:00; Status DC Pramipexole Dihydrochloride (miraPEX) 0.25 mg QHS PO Last administered on at 19:40; Start 08/03/18 at 21:00; Stop 08/03/18 at 21:01; Status DC Quetiapine Fumarate (SEROquel) 50 mg QHS PO Last administered on 08/06/18at 21: 06; Start 08/03/18 at 21:00; Stop 08/07/18 at 18:42; Status DC Carbidopa/Levodopa (Sinemet 25/100) 2 tab TID PO Last administered on at 20:02; Start 08/03/18 at 21:00 Multi-Ingredient Ointment (Analgesic [place]) 1 kristina PRN QID PRN TP MUSCLE PAIN; Start 08/03/18 at 18:30 Al Hydroxide/Mg Hydroxide (Mylanta Plus Xs) 15 ml PRN AFTMEALHC PRN PO DYSPEPSIA; Start 08/03/18 at 18:30 Magnesium Hydroxide (Milk Of Magnesia) 2,400 mg PRN QHS PRN PO CONSTIPATION; Start 08/03/18 at 18:30 Memantine (Namenda) 5 mg DAILY PO Last administered on 08/07/18at 08:37; Start 08/05/18 at 10:00; Stop 08/07/18 at 18:06; Status DC Rivastigmine (Exelon) 1 patch DAILY TD Last administered on 08/07/18at 08:41; Start 08/05/18 at 10:00; Stop 08/07/18 at 19:03; Status DC Mirtazapine (Remeron) 7.5 mg QHS PO Last administered on 08/09/18at 20:18; Start 08/05/18 at 21:00; Stop 08/10/18 at 17:15; Status DC Olanzapine (ZyPREXA ZYDIS) 1.25 mg PRN Q2HR PRN PO ANXIETY / AGITATION Last administered on 08/12/18 11:05; Start 08/05/18 at 09:30 Memantine (Namenda) 5 mg [id number] PO Last administered on 08/16/18 17:54; Start 08/08/18 at 09:00 Quetiapine Fumarate (SEROquel) 75 mg QHS PO Last administered on 08/13/18at 21: 05; Start 08/07/18 at 21:00; Stop 08/14/18 at 19:15; Status DC Rivastigmine (Exelon) 1 patch DAILY TD Last administered on 08/16/18 08:13; Start 08/08/18 at 09:00 Mirtazapine (Remeron) 15 mg QHS PO Last administered on 08/16/18 20:03; Start 08/10/18 at 21:00 Sertraline HCl (Zoloft) 25 mg DAILY PO Last administered on 08/16/18 08:12; Start 08/12/18 at 09:00 Quetiapine Fumarate (SEROquel) 100 mg QHS PO Last administered on 08/16/18 20: 02; Start 08/14/18 at 21:00 Active Scripts Active Reported Seroquel (Quetiapine Fumarate) 50 Mg Tablet 50 Mg PO HS Multi-Day Plus Minerals Tablet (Multivitamin-Min/Iron/FA/Vit K) 1 Each Tablet 1 Each PO DAILY Mirapex (Pramipexole Di-Hcl) 0.25 Mg Tablet 0.25 Mg PO HS 1 Days Mirapex (Pramipexole Di-Hcl) 0.25 Mg Tablet 0.125 Mg PO TID 4 Days Miralax (Polyethylene Glycol 3350) 17 Gm Powd.pack 17 Gm PO DAILY Gabapentin 100 Mg Capsule 100 Mg PO TID Sinemet 25-100 Mg Tablet (Carbidopa/Levodopa) 1 Each Tablet 2 Tab PO TID Calcium 500 + Vit D 400 Tablet (Calcium Carbonate/Vitamin D3) 1 Each Tablet 1 Each PO BID Atorvastatin Calcium 10 Mg Tablet 5 Mg PO QHS Aspirin Ec (Aspirin) 81 Mg Tablet.dr 81 Mg PO HS Tylenol (Acetaminophen) 325 Mg Tablet 650 Mg PO PRN Q4HRS PRN I have reviewed the current psychotropics carefully including drug interactions. Risk benefit ratio favors no change other than as noted in my dictated progress note. Diagnosis: Problems: (1) Medical clearance for psychiatric admission (2) Anxiety disorder (3) Impulse control disorder (4) Major depressive disorder, recurrent episode (5) Mild cognitive impairment (6) Parkinson's disease ASIM WISE MD Aug 16, 2018 20:27
[2018-08-17] MEDS ORDERED: MAGN2400 PO (00:19)
[2018-08-17] MEDS ORDERED: MAG-27 PO (00:19)
[2018-08-17] MEDS ORDERED: METH29OI TP (00:20)
[2018-08-17] MEDS ORDERED: MEMA10TA PO (00:20)
[2018-08-17] MEDS ORDERED: OLAN5TAB7 PO (00:21)
[2018-08-17] MEDS ORDERED: RIVA1PAT23 TD (00:21)
[2018-08-17] MEDS ORDERED: MIRT15TA3 PO (00:21)
[2018-08-17] MEDS ORDERED: SERT25TA PO (00:22)
[2018-08-17 05:50] VITALS: BP 145/77
[2018-08-17] MEDS: CALCIUM CARB/VIT D3 500/200 TABLET PO SCH (08:04)
[2018-08-17] MEDS: MULTIVITAMIN with MINERAL TABLET. PO SCH (08:04)
[2018-08-17] MEDS: MEMANTINE 5 MG TABLET. PO SCH (08:04)
[2018-08-17] MEDS: SERTRALINE 25 MG TABLET. PO SCH (08:04)
[2018-08-17] MEDS: RIVASTIGMINE 9.5MG PATCH. TD SCH (08:04)
[2018-08-17] MEDS: CARBIDOPA/LEVODOPA 25/100MG TABLET PO SCH ×2 (08:04→13:50)
[2018-08-17] MEDS: POLYETHYLENE GLYCOL 3350 17 GM PACKET. PO SCH (08:05)
--- NOTE | 2018-08-17 20:40 | PDOC ---
Exam Note: Alfonso Note: Please also refer to the separate dictated note~for this date of service dictated separately.~Patient seen individually. Discussed the patient with Nursing staff reviewed the chart.~Reviewed interim history and current functioning. Reviewed vital signs,~Labs/ Radiology~and current medications noted below. Continue current treatment with the changes noted in the dictated addendum note Assessment: Vital Signs: Vital Signs Date Time Temp Pulse Resp B/P (MAP) Pulse Ox O2 Delivery O2 Flow Rate FiO2 08/17/18 05:50 97.5 82 20 145/77 (99) 95 08/16/18 15:53 Room Air I&O Intake and Output 08/17/18 07:00 Intake Total 1320 ml Balance 1320 ml Intake Oral 1320 ml Current Medications: Meds: Current Medications Carbidopa/Levodopa (Sinemet 25/100) 2 tab [id number] PO ; Start 08/03/18 at 18:00 ; Stop 08/03/18 at 18:00; Status DC Gabapentin (Neurontin) 100 mg 1X ONCE PO Last administered on 08/03/18at 15:42 ; Start 08/03/18 at 15:30; Stop 08/03/18 at 15:53; Status DC Quetiapine Fumarate (SEROquel) 50 mg PRN TID PO ; Start 08/03/18 at 15:30; Stop 08/03/18 at 16:49; Status DC Acetaminophen (Tylenol) 650 mg PRN Q4HRS PRN PO PAIN / TEMP Last administered on 08/16/18at 20:10; Start 08/03/18 at 16:30; Stop 08/17/18 at 14:40; Status DC Gabapentin (Neurontin) 100 mg TID PO ; Start 08/03/18 at 21:00; Stop 08/03/18 at 21:00; Status DC Aspirin (Aspirin Enteric Coated) 81 mg HS PO Last administered on 08/16/18at 20: 02; Start 08/03/18 at 21:00; Stop 08/17/18 at 14:40; Status DC Atorvastatin Calcium (Lipitor) 5 mg QHS PO Last administered on 08/16/18at 20:03 ; Start 08/03/18 at 21:00; Stop 08/17/18 at 14:41; Status DC Calcium/Vitamin D (Oscal D 500mg/ 200uts) 1 tab BIDWMEALS PO Last administered on 08/17/18at 08:04; Start 08/03/18 at 17:00; Stop 08/17/18 at 14:41; Status DC Multivitamins/ Calcium (Thera-M Plus) 1 tab DAILY PO Last administered on at 08:04; Start 08/04/18 at 09:00; Stop 08/17/18 at 14:41; Status DC Polyethylene Glycol (miraLAX) 17 gm DAILY PO Last administered on 08/17/18at 08: 05; Start 08/04/18 at 09:00; Stop 08/17/18 at 14:41; Status DC Pramipexole Dihydrochloride (miraPEX) 0.125 mg [id number] PO Last administered on at 19:38; Start 08/04/18 at 09:00; Stop 08/07/18 at 23:00; Status DC Pramipexole Dihydrochloride (miraPEX) 0.25 mg QHS PO Last administered on at 19:40; Start 08/03/18 at 21:00; Stop 08/03/18 at 21:01; Status DC Quetiapine Fumarate (SEROquel) 50 mg QHS PO Last administered on 08/06/18at 21: 06; Start 08/03/18 at 21:00; Stop 08/07/18 at 18:42; Status DC Carbidopa/Levodopa (Sinemet 25/100) 2 tab TID PO Last administered on at 13:50; Start 08/03/18 at 21:00; Stop 08/17/18 at 14:41; Status DC Multi-Ingredient Ointment (Analgesic [place]) 1 niya PRN QID PRN TP MUSCLE PAIN; Start 08/03/18 at 18:30; Stop 08/17/18 at 14:41; Status DC Al Hydroxide/Mg Hydroxide (Mylanta Plus Xs) 15 ml PRN AFTMEALHC PRN PO DYSPEPSIA; Start 08/03/18 at 18:30; Stop 08/17/18 at 14:41; Status DC Magnesium Hydroxide (Milk Of Magnesia) 2,400 mg PRN QHS PRN PO CONSTIPATION Last administered on 08/17/18at 06:47; Start 08/03/18 at 18:30; Stop 08/17/18 at 14:41; Status DC Memantine (Namenda) 5 mg DAILY PO Last administered on 08/07/18at 08:37; Start 08/05/18 at 10:00; Stop 08/07/18 at 18:06; Status DC Rivastigmine (Exelon) 1 patch DAILY TD Last administered on 08/07/18at 08:41; Start 08/05/18 at 10:00; Stop 08/07/18 at 19:03; Status DC Mirtazapine (Remeron) 7.5 mg QHS PO Last administered on 08/09/18at 20:18; Start 08/05/18 at 21:00; Stop 08/10/18 at 17:15; Status DC Olanzapine (ZyPREXA ZYDIS) 1.25 mg PRN Q2HR PRN PO ANXIETY / AGITATION Last administered on 08/12/18at 11:05; Start 08/05/18 at 09:30; Stop 08/17/18 at 14:41 ; Status DC Memantine (Namenda) 5 mg [id number] PO Last administered on 08/17/18at 08:04; Start 08/08/18 at 09:00; Stop 08/17/18 at 14:41; Status DC Quetiapine Fumarate (SEROquel) 75 mg QHS PO Last administered on 08/13/18at 21: 05; Start 08/07/18 at 21:00; Stop 08/14/18 at 19:15; Status DC Rivastigmine (Exelon) 1 patch DAILY TD Last administered on 08/17/18at 08:04; Start 08/08/18 at 09:00; Stop 08/17/18 at 14:41; Status DC Mirtazapine (Remeron) 15 mg QHS PO Last administered on 08/16/18at 20:03; Start 08/10/18 at 21:00; Stop 08/17/18 at 14:41; Status DC Sertraline HCl (Zoloft) 25 mg DAILY PO Last administered on 08/17/18at 08:04; Start 08/12/18 at 09:00; Stop 08/17/18 at 14:41; Status DC Quetiapine Fumarate (SEROquel) 100 mg QHS PO Last administered on 08/16/18at 20: 02; Start 08/14/18 at 21:00; Stop 08/17/18 at 14:41; Status DC Active Scripts Active Reported Zoloft (Sertraline Hcl) 25 Mg Tablet 25 Mg PO DAILY EXELON 9.5mg/24hr (Rivastigmine) 1 Each Patch.td24 1 Patch TD DAILY Olanzapine Odt (Olanzapine) 5 Mg Tab.rapdis 1.25 Mg PO PRN Q2HR PRN Mirtazapine 15 Mg Tablet 15 Mg PO HS Analgesic [place] (Methyl Salicylate/Menthol) 28 Gm Oint...g. 1 [place] TP PRN QID PRN Namenda (Memantine Hcl) 10 Mg Tablet 5 Mg PO BID94 Milk Of Magnesia (Magnesium Hydroxide) 2,400 Mg/10 Ml Oral.susp 2,400 Mg PO PRN QHS PRN Jeniffer-Lanta Liquid (Mag Hydrox/Al Hydrox/Simeth) 355 Ml Oral.susp 15 Ml PO PRN AFTMEALHC PRN Seroquel (Quetiapine Fumarate) 50 Mg Tablet 100 Mg PO HS Multi-Day Plus Minerals Tablet (Multivitamin-Min/Iron/FA/Vit K) 1 Each Tablet 1 Each PO DAILY Miralax (Polyethylene Glycol 3350) 17 Gm Powd.pack 17 Gm PO DAILY Sinemet 25-100 Mg Tablet (Carbidopa/Levodopa) 1 Each Tablet 2 Tab PO TID Calcium 500 + Vit D 400 Tablet (Calcium Carbonate/Vitamin D3) 1 Each Tablet 1 Each PO BIDWMEALS Atorvastatin Calcium 10 Mg Tablet 5 Mg PO QHS Aspirin Ec (Aspirin) 81 Mg Tablet. 81 Mg PO HS Tylenol (Acetaminophen) 325 Mg Tablet 650 Mg PO PRN Q4HRS PRN I have reviewed the current psychotropics carefully including drug interactions. Risk benefit ratio favors no change other than as noted in my dictated progress note. Diagnosis: Problems: (1) Anxiety disorder (2) Impulse control disorder (3) Major depressive disorder, recurrent episode (4) Mild cognitive impairment (5) Parkinson's disease ASIM WISE MD Aug 17, 2018 20:40
--- NOTE | 2018-08-17 22:04 | PN ---
DATE: 08/15/2018 This is a late entry for 08/15/2018 covers elements not covered in my initial note. SUBJECTIVE: I met with the patient in the evening. The patient slept 5-3/4 hours previous evening. He has been social, less paranoid, less anxious, ambulating with a walker. REVIEW OF SYSTEMS: No CV, , pulmonary, eye, ENT system symptoms on review. MENTAL STATUS EXAM: Reasonably oriented to himself and situation. Speech has some latency, coherent. Abstraction fair, computation impaired, language function intact, attention span short. Mood and affect appears improved. LABORATORY DATA: Reviewed. IMPRESSION: Unchanged from initial note. PLAN: No change from initial note. MAN Taras WISE MD DR: LISA/ferny JOB#: [id number] / [id number]
--- NOTE | 2018-08-18 00:29 | PN ---
DATE: 08/16/2018 This is a late entry for 08/16/2018 covers elements not covered in my initial note. SUBJECTIVE: I met with the patient in the evening, staffed at a treatment team meeting with the entire team in the morning. Reviewed the patient's history, progress. The patient slept 5-1/2 hours previous night. He has been much more pleasant, cooperative, interactive, less irritable. Ambulation impaired with walker consistent with his Parkinson's. REVIEW OF SYSTEMS: No CV, , pulmonary, eye system symptoms on review. MENTAL STATUS EXAM: Reasonably oriented. Speech coherent, low in volume. Abstraction fair. Computation able to do one step serial sevens, remember 2/3 objects at 3 minutes. He is quite apprehensive unsure if he would be discharged at the end of this week and we addressed this individually. He is very pleased with the tentative discharge for 08/17/2018 and much better at the end of the visit. IMPRESSION: Major depressive disorder, recurrent, in partial remission. Rest unchanged. PLAN: No change from initial note. ASIM WISE MD DR: LISA/ferny JOB#: [id number] / [id number]
--- NOTE | 2018-08-19 13:50 | DS ---
DATE OF DISCHARGE: 08/17/2018 DISCHARGE SUMMARY/PSYCHIATRIC PROGRESS NOTE This late entry of 08/17/2018, covers elements not covered in my initial note. REASON FOR ADMISSION: Please refer to the admission history for details. Briefly, the patient is a 78-year-old male referred to us from [facility] by his primary care physician on account of active hallucinations, delusions, paranoia. The patient was resistive with cares, increasingly anxious, impulsive, threw his urinal at a staff member. Behaviors were unmanageable, dangerous at the facility, resulting in this referral. This was within the context of his Parkinson's disease. SIGNIFICANT FINDINGS AND CLINICAL COURSE: Following admission, the patient was seen daily individually by myself from a psychiatric standpoint, medical followup with Dr. Germain/Dr Lee. He is extremely paranoid, depressed, anxious, irritable, and labile. Adjustments were made in the psychotropics. He seemed to respond to a combination of Exelon patch increasing to 9.5 mg a day, Namenda 5 mg b.i.d., Seroquel [address] Stone recommended a taper off the Mirapex and he was also on Remeron 15 mg at bedtime, Zyprexa p.r.n., and Zoloft 25 mg a day, which could be increased gradually post-discharge. Gradually, his mood appeared to improve. He was much less irritable, angry much more compliant, verbal and appropriate. Prior to discharge, will be assisted and ambulation impaired with a wheelchair. REVIEW OF SYSTEMS: No CV, , pulmonary, eye, ENT system symptoms on review. He does have parkinsonian tremors. MENTAL STATUS EXAM: Oriented to himself, place and situation. Speech has some latency, low in volume, coherent, abstraction fair, computation, able to do two steps and serial on serial 7s. Mood and affect is improved. No suicidal or homicidal ideation. Paranoia is improved. CONDITION AT DISCHARGE: Improved. FINAL DIAGNOSES: Major depressive disorder, recurrent, in partial remission; anxiety disorder, unspecified; impulse control disorder, unspecified. Parkinson's disease. Rest unchanged from admission. DISCHARGE MEDICATIONS: Please refer to the [facility]. DISCHARGE INSTRUCTIONS: Outpatient psychiatric and medical followup with a senior living. Time for discharge day management greater than 30 minutes. MAN Taras WISE MD DR: Honey JOB#: [id number] / [id number]
== END 2018-08-17 14:15 | DRG 885 ==
LOC: ER 12:05 → GEROPSY 15:58
PROVIDERS: ADMIT Psychiatry & Neurology Psychiatry; ATTEND Psychiatry & Neurology Psychiatry
DX: F33.3 Major depressive disorder, recurrent, severe with psychotic symptoms (principal); F01.51 Vascular dementia, unspecified severity, with behavioral disturbance; F02.81 Dementia in other diseases classified elsewhere, unspecified severity, with behavioral disturbance; G20 Parkinson's disease; E78.5 Hyperlipidemia, unspecified; F33.41 Major depressive disorder, recurrent, in partial remission; F41.9 Anxiety disorder, unspecified; F42.9 Obsessive-compulsive disorder, unspecified; Z66 Do not resuscitate; F63.9 Impulse disorder, unspecified; I10 Essential (primary) hypertension; Z91.81 History of falling; Z79.899 Other long term (current) drug therapy
CPT/HCPCS: 36415; 71045; 80053; 80061; 81001; 82306; 82607; 82947; 83036; 83540; 83550; 83605; 83735; 84436; 84443; 84480; 84484; 85025; 86592; 93005; 97110; 97116; 97530; 99285-25